=== PATIENT | female | born 1995 | race African-American/Black ===

== ENCOUNTER 2016-09-14 22:48 | Emergency (ER) | payer OTHER ==
[2016-09-15] MEDS ORDERED: metroNIDAZOLE-NS PMX 500 MG in SALINE 1 100ML.BAG IVPB STA (00:59)
--- NOTE | 2016-09-15 02:24 | ED ---
Recheck HPI - General Chief Complaint: Recheck/Abnormal Lab/Rx Stated Complaint: med reaction Time Seen by Provider: 09/15/16 00:49 Source: patient, RN notes reviewed, old records reviewed Mode of arrival: ambulatory Limitations: no limitations - History of Present Illness Initial Comments: This is a 21-year-old female presents emergency department reporting that she was negative for Trichomonas. Patient reports that she was been treated with metronidazole for the past few weeks but always vomits up her Flagyl pills. Patient ports that she is continued to have symptoms. Patient was at her primary care provider sent her in here to have IV medication. Patient denies any fever or chills. She reports that she does have dysuria and some vaginal discharge. Patient denies any fever or chills, nausea or vomiting abdominal pain. - Related Data Home Medications Medication Instructions Recorded Confirmed No Known Home Medications [No 12/14/15 09/14/16 Known Home Medications] Allergies Allergy/AdvReac Type Severity Reaction Status Date / Time amoxicillin Allergy Unknown Verified 09/14/16 23:18 metronidazole AdvReac Nausea & Verified 09/14/16 23:18 Vomiting Review of Systems ROS Statement: Those systems with pertinent positive or pertinent negative responses have been documented in the HPI. ROS Other: All systems not noted in ROS Statement are negative. Past Medical History Past Medical History: No Reported History History of Any Multi-Drug Resistant Organisms: None Reported Past Surgical History: No Surgical Hx Reported Past Psychological History: No Psychological Hx Reported Smoking Status: Never smoker Past Alcohol Use History: None Reported Past Drug Use History: None Reported General Exam - General Exam Comments Initial Comments: Is a 21-year-old female. Patient does not appear to be in any acute distress. Limitations: no limitations General appearance: alert, in no apparent distress Head exam: Present: atraumatic, normocephalic, normal inspection Eye exam: Present: normal appearance, PERRL, EOMI. Absent: scleral icterus, conjunctival injection, periorbital swelling ENT exam: Present: normal exam, mucous membranes moist Neck exam: Present: normal inspection. Absent: tenderness, meningismus, lymphadenopathy Respiratory exam: Present: normal lung sounds bilaterally. Absent: respiratory distress, wheezes, rales, rhonchi, stridor Cardiovascular Exam: Present: regular rate, normal rhythm, normal heart sounds. Absent: systolic murmur, diastolic murmur, rubs, gallop, clicks GI/Abdominal exam: Present: soft, normal bowel sounds. Absent: distended, tenderness, guarding, rebound, rigid External exam: Present: other (unable to preform vaginal exam, ER is full. Patient is in hallway during initial H and P. ) Extremities exam: Present: normal inspection, full ROM, normal capillary refill. Absent: tenderness, pedal edema, joint swelling, calf tenderness Back exam: Present: normal inspection Neurological exam: Present: alert, oriented X3, CN II-XII intact Psychiatric exam: Present: normal affect, normal mood Skin exam: Present: warm, dry, intact, normal color. Absent: rash Course Vital Signs 09/14/16 09/15/16 23:14 04:57 Temperature 98.0 F 96.9 F L Pulse Rate 115 H 88 Respiratory 18 16 Rate Blood Pressure 141/97 112/76 O2 Sat by Pulse 99 98 Oximetry Medical Decision Making - Medical Decision Making This is a 21-year-old female presents emergency department reporting that she was negative for Trichomonas. Patient reports that she was been treated with metronidazole for the past few weeks but always vomits up her Flagyl pills. Patient ports that she is continued to have symptoms. Patient was at her primary care provider sent her in here to have IV medication. Patient denies any fever or chills. Patient was unable to have pelvic exam, ER is full. No [facility] beds, and patient was in hallway and FT room with other patient. Patient given 2 g IV flagyl. Discussed with dosage with Dr. Hubbard, and pharmacist. Return paramteres discussed. Patient agrees to treatment plan and avoid intercourse. Patietn understands treatment plan, advised to follow up with PCP. Disposition Clinical Impression: Trichomoniasis Disposition: HOME SELF-CARE Condition: Good Instructions: Sexually Transmitted Diseases (ED) Additional Instructions: Avoid sexual intercourse for the next 2 weeks. Inform all sexual partners that they need to be treated. Return to emergency department if any alarming signs or symptoms occur. Referrals: Candi Andersen MD [Primary Care Provider] - 1-2 days Time of Disposition: 04:13
[2016-09-15] MEDS: metroNIDAZOLE-NS PMX 500 MG in SALINE 1 100ML.BAG IVPB SCH ×4 (02:50→04:06)
[2016-09-15 04:58] VITALS: BP 112/76; PULSE 88; RESP 16; TEMP 96.9
== END 2016-09-15 04:57 | disposition home or self-care (01) ==
LOC: EC 22:48
DX: A59.9 Trichomoniasis, unspecified (principal); Z88.0 Allergy status to penicillin; Z88.1 Allergy status to other antibiotic agents
CPT/HCPCS: 96365; 96366; 99283

== ENCOUNTER 2016-10-17 16:47 | Emergency (ER) | payer OTHER ==
[2016-10-17] MEDS ORDERED: ACETAMINOPHEN TAB 500 MG TAB PO STA (17:31)
[2016-10-17] MEDS ORDERED: ACETAMINOPHEN ORAL SUSP 160 MG/5 ML CUP PO STA (17:55)
[2016-10-17] MEDS ORDERED: IBUPROFEN IV 800 MG in SODIUM CHLORIDE 0.9% 250 ML IV STA (17:59)
--- NOTE | 2016-10-17 17:59 | ED ---
Fever HPI - General Chief Complaint: Fever Stated Complaint: Fever Time Seen by Provider: 10/17/16 17:31 Source: patient, RN notes reviewed Mode of arrival: ambulatory Limitations: no limitations - History of Present Illness Initial Comments: Patient is a 21-year-old female presents to the emergency room evaluation of fever. Patient states she's had fever since Tuesday. Patient states she went and saw her primary care provider and she was told she had a urinary tract tract infection and placed on Bactrim. Patient states she can't swallow pills and was unable to take her medications. Patient states she was told that if her temperature went above 102.0F come to the emergency room. Patient states that her temperature at home was 103.0F so she came here. Patient denies taking any Tylenol or Motrin throughout the weekend. Patient states she's had a slight dry cough. Patient states she has slight left ear pain. Patient denies throat pain. Patient denies headache or dizziness. Patient denies shortness of breath or chest pain. Patient denies abdominal pain. Patient denies nausea or vomiting. Patient denies pain or burning during urination, trouble urinating or blood in urine. Patient does states she is sexually active. Patient does states she's been 9 days late on her menstrual cycle. Patient states urine test was negative for while she was at her primary care provider on Tuesday. - Related Data Previous Rx's Medication Instructions Recorded Sulfamethox-Tmp 200-40Mg/5Ml 20 ml PO Q12HR 7 Days 10/17/16 [Bactrim Suspension] Allergies Allergy/AdvReac Type Severity Reaction Status Date / Time amoxicillin Allergy Rash/Hives Verified 10/17/16 18:02 Review of Systems ROS Statement: Those systems with pertinent positive or pertinent negative responses have been documented in the HPI. ROS Other: All systems not noted in ROS Statement are negative. Past Medical History Past Medical History: No Reported History History of Any Multi-Drug Resistant Organisms: None Reported Past Surgical History: No Surgical Hx Reported Past Psychological History: No Psychological Hx Reported Smoking Status: Never smoker Past Alcohol Use History: None Reported Past Drug Use History: None Reported General Exam - General Exam Comments Initial Comments: Sitting in exam room, no acute distress. Limitations: no limitations General appearance: alert, in no apparent distress Head exam: Present: atraumatic, normocephalic, normal inspection Eye exam: Present: normal appearance, PERRL, EOMI Pupils: Present: normal accommodation ENT exam: Present: normal exam, normal oropharynx, mucous membranes moist, TM's normal bilaterally, normal external ear exam Neck exam: Present: normal inspection, full ROM. Absent: tenderness, lymphadenopathy Respiratory exam: Present: normal lung sounds bilaterally. Absent: respiratory distress Cardiovascular Exam: Present: normal rhythm, tachycardia, normal heart sounds GI/Abdominal exam: Present: soft, normal bowel sounds. Absent: distended, tenderness, guarding, rebound, rigid Extremities exam: Present: normal inspection Back exam: Present: normal inspection Neurological exam: Present: alert, oriented X3, CN II-XII intact, normal gait Psychiatric exam: Present: normal affect, normal mood Skin exam: Present: warm, dry, intact, normal color. Absent: rash Course Vital Signs 10/17/16 10/17/16 10/17/16 17:06 18:50 19:54 Temperature 104.2 F H 101.1 F H Pulse Rate 124 H 107 H Respiratory 20 18 Rate Blood Pressure 133/95 143/86 O2 Sat by Pulse 98 96 Oximetry 10/17/16 20:26 Temperature 100.9 F H Pulse Rate 98 Respiratory 20 Rate Blood Pressure 119/77 O2 Sat by Pulse 97 Oximetry Medical Decision Making - Medical Decision Making Patient is a 21-year-old female presents to the emergency room for reevaluation of fever. Labs significant for urinary tract infection. patient will be placed on Rocephin and sent home with liquid Bactrim. Advised patient to alternate Tylenol and Motrin for fever. Patient states she understands everything that was discussed with her. Return parameters discussed. Case discussed with Dr. Soler. - Lab Data Result diagrams: 10/17/16 18:20 10/17/16 18:20 Lab Results 10/17/16 10/17/16 10/17/16 Range/Units 18:20 18:20 18:20 WBC 7.2 (4.0-11.0) k/uL RBC 4.90 (3.80-5.40) m/uL Hgb 14.4 (11.4-16.0) gm/dL Hct 41.2 (34.0-46.0) % MCV 84.1 (80.0-100.0) fL MCH 29.4 (25.0-35.0) pg MCHC 35.0 (31.0-37.0) g/dL RDW 13.9 (11.5-15.5) % Plt Count 197 (150-450) k/uL Neutrophils % 43 % Lymphocytes % 42 % Monocytes % 2 % Eosinophils % 2 % Basophils % 1 % Neutrophils # 3.1 (1.3-7.7) k/uL Lymphocytes # 3.0 (1.0-4.8) k/uL Monocytes # 0.1 (0-1.0) k/uL Eosinophils # 0.1 (0-0.7) k/uL Basophils # 0.1 (0-0.2) k/uL Manual Slide Review Performed Reactive Lymphocytes Present PT (9.0-12.0) sec INR (<1.1) APTT (22.0-30.0) sec Sodium 138 (137-145) mmol/L Potassium 4.1 (3.5-5.1) mmol/L Chloride 104 (98-107) mmol/L Carbon Dioxide 22 (22-30) mmol/L Anion Gap 12 mmol/L BUN 9 (7-17) mg/dL Creatinine 1.13 H (0.52-1.04) mg/dL Est GFR (MDRD) Af Amer >60 (>60 ml/min/1.73 sqM) Est GFR (MDRD) Non-Af >60 (>60 ml/min/1.73 sqM) Glucose 100 H (74-99) mg/dL Plasma Lactic Acid Venancio 1.4 (0.7-2.0) mmol/L Calcium 9.1 (8.4-10.2) mg/dL Total Bilirubin 1.2 (0.2-1.3) mg/dL AST 74 H (14-36) U/L ALT 105 H (9-52) U/L Alkaline Phosphatase 109 (38-126) U/L Total Protein 7.2 (6.3-8.2) g/dL Albumin 3.8 (3.5-5.0) g/dL Urine Color Urine Appearance (Clear) Urine pH (5.0-8.0) Ur Specific [place] (1.001-1.035) Urine Protein (Negative) Urine Glucose (UA) (Negative) Urine Ketones (Negative) Urine Blood (Negative) Urine Nitrite (Negative) Urine Bilirubin (Negative) Urine Urobilinogen (<2.0) mg/dL Ur Leukocyte Esterase (Negative) Urine RBC (0-5) /hpf Urine WBC (0-5) /hpf Ur Squamous Epith Cells (0-4) /hpf Amorphous Sediment (None) /hpf Urine Mucus (None) /hpf Urine HCG, Qual (Not Detectd) Heterophile Antibody (Negative) 10/17/16 10/17/16 10/17/16 Range/Units 18:20 18:20 18:20 WBC (4.0-11.0) k/uL RBC (3.80-5.40) m/uL Hgb (11.4-16.0) gm/dL Hct (34.0-46.0) % MCV (80.0-100.0) fL MCH (25.0-35.0) pg MCHC (31.0-37.0) g/dL RDW (11.5-15.5) % Plt Count (150-450) k/uL Neutrophils % % Lymphocytes % % Monocytes % % Eosinophils % % Basophils % % Neutrophils # (1.3-7.7) k/uL Lymphocytes # (1.0-4.8) k/uL Monocytes # (0-1.0) k/uL Eosinophils # (0-0.7) k/uL Basophils # (0-0.2) k/uL Manual Slide Review Reactive Lymphocytes PT 11.4 (9.0-12.0) sec INR 1.1 (<1.1) APTT 26.1 (22.0-30.0) sec Sodium (137-145) mmol/L Potassium (3.5-5.1) mmol/L Chloride (98-107) mmol/L Carbon Dioxide (22-30) mmol/L Anion Gap mmol/L BUN (7-17) mg/dL Creatinine (0.52-1.04) mg/dL Est GFR (MDRD) Af Amer (>60 ml/min/1.73 sqM) Est GFR (MDRD) Non-Af (>60 ml/min/1.73 sqM) Glucose (74-99) mg/dL Plasma Lactic Acid Venancio (0.7-2.0) mmol/L Calcium (8.4-10.2) mg/dL Total Bilirubin (0.2-1.3) mg/dL AST (14-36) U/L ALT (9-52) U/L Alkaline Phosphatase (38-126) U/L Total Protein (6.3-8.2) g/dL Albumin (3.5-5.0) g/dL Urine Color Dark Yellow Urine Appearance Turbid H (Clear) Urine pH 5.5 (5.0-8.0) Ur Specific [place] 1.022 (1.001-1.035) Urine Protein 1+ H (Negative) Urine Glucose (UA) Negative (Negative) Urine Ketones Negative (Negative) Urine Blood Large H (Negative) Urine Nitrite Negative (Negative) Urine Bilirubin 1+ H (Negative) Urine Urobilinogen 3.0 (<2.0) mg/dL Ur Leukocyte Esterase Large H (Negative) Urine RBC 7 H (0-5) /hpf Urine WBC 49 H (0-5) /hpf Ur Squamous Epith Cells 41 H (0-4) /hpf Amorphous Sediment Rare H (None) /hpf Urine Mucus Many H (None) /hpf Urine HCG, Qual Not Detected (Not Detectd) Heterophile Antibody (Negative) 10/17/16 Range/Units 18:20 WBC (4.0-11.0) k/uL RBC (3.80-5.40) m/uL Hgb (11.4-16.0) gm/dL Hct (34.0-46.0) % MCV (80.0-100.0) fL MCH (25.0-35.0) pg MCHC (31.0-37.0) g/dL RDW (11.5-15.5) % Plt Count (150-450) k/uL Neutrophils % % Lymphocytes % % Monocytes % % Eosinophils % % Basophils % % Neutrophils # (1.3-7.7) k/uL Lymphocytes # (1.0-4.8) k/uL Monocytes # (0-1.0) k/uL Eosinophils # (0-0.7) k/uL Basophils # (0-0.2) k/uL Manual Slide Review Reactive Lymphocytes PT (9.0-12.0) sec INR (<1.1) APTT (22.0-30.0) sec Sodium (137-145) mmol/L Potassium (3.5-5.1) mmol/L Chloride (98-107) mmol/L Carbon Dioxide (22-30) mmol/L Anion Gap mmol/L BUN (7-17) mg/dL Creatinine (0.52-1.04) mg/dL Est GFR (MDRD) Af Amer (>60 ml/min/1.73 sqM) Est GFR (MDRD) Non-Af (>60 ml/min/1.73 sqM) Glucose (74-99) mg/dL Plasma Lactic Acid Venancio (0.7-2.0) mmol/L Calcium (8.4-10.2) mg/dL Total Bilirubin (0.2-1.3) mg/dL AST (14-36) U/L ALT (9-52) U/L Alkaline Phosphatase (38-126) U/L Total Protein (6.3-8.2) g/dL Albumin (3.5-5.0) g/dL Urine Color Urine Appearance (Clear) Urine pH (5.0-8.0) Ur Specific [place] (1.001-1.035) Urine Protein (Negative) Urine Glucose (UA) (Negative) Urine Ketones (Negative) Urine Blood (Negative) Urine Nitrite (Negative) Urine Bilirubin (Negative) Urine Urobilinogen (<2.0) mg/dL Ur Leukocyte Esterase (Negative) Urine RBC (0-5) /hpf Urine WBC (0-5) /hpf Ur Squamous Epith Cells (0-4) /hpf Amorphous Sediment (None) /hpf Urine Mucus (None) /hpf Urine HCG, Qual (Not Detectd) Heterophile Antibody Negative (Negative) Disposition Clinical Impression: Urinary tract infection Disposition: HOME SELF-CARE Condition: Good Instructions: Urinary Tract Infection in Women (ED) Additional Instructions: Take antibiotics as directed. Alternate Tylenol and Motrin every 3 hours for fever. Please follow up with primary care provider in 1-2 days. If any new symptom arises or symptoms worsen, return to ER as soon as possible. Prescriptions: Sulfamethox-Tmp 200-40Mg/5Ml [Bactrim Suspension] 20 ml PO Q12HR 7 Days Referrals: Candi Andersen MD [Primary Care Provider] - 1-2 days Time of Disposition: 20:29
[2016-10-17 18:43] LABS: Amorphous Sediment,Urine Rare /hpf; Appearance,Urine Turbid (Clear); Bilirubin,Urine 1+ (Negative); Glucose,Urine (UA) Negative (Negative); Ketones,Urine Negative (Negative); Leukocyte Esterase,Urine Large (Negative); Mucus,Urine Many /hpf; Nitrite,Urine Negative (Negative); PH, Urine 5.5 (5.0-8.0); Particle Count 46830; Protein,Urine 1+ (Negative); RBC,Urine 7 /hpf (0-5); Specific Gravity,Urine 1.022 (1.001-1.035); Squamous Epithelial Cell,Urine 41 /hpf (0-4); UA Billing (MACRO vs. MICRO) MICRO; WBC,Urine 49 /hpf (0-5)
[2016-10-17] MEDS: SODIUM CHLORIDE 0.9% 500 ML IV SCH (18:45)
[2016-10-17 18:52] LABS: ALT 105 U/L (9-52); AST 74 U/L (14-36); Alkaline Phosphatase 109 U/L (38-126); Anion Gap 12 mmol/L; Blood Urea Nitrogen 9 mg/dL (7-17); Calcium 9.1 mg/dL (8.4-10.2); Carbon Dioxide 22 mmol/L (22-30); Chloride 104 mmol/L (98-107); Glucose 100 mg/dL (74-99); Non-African American GFR(MDRD) >60 (>60 ml/min/1.73 sqM); Potassium 4.1 mmol/L (3.5-5.1); Sodium 138 mmol/L (137-145); Total Bilirubin 1.2 mg/dL (0.2-1.3); Total Protein 7.2 g/dL (6.3-8.2)
[2016-10-17 18:53] LABS: Aty Lym Flag Marked; Basophils # (A) 0.1 k/uL (0-0.2); Basophils % (A) 1 %; CH 29.5; CHCM 35.3; Eosinophils # (A) 0.1 k/uL (0-0.7); Eosinophils % (A) 2 %; HCT 41.2 % (34.0-46.0); HDW 3.13; HGB 14.4 gm/dL (11.4-16.0); INR 1.1 (<1.1); Luc # (Auto) 0.77; Luc % (Auto) 11; Lymphocytes % (A) 42 %; MCH 29.4 pg (25.0-35.0); MCV 84.1 fL (80.0-100.0); Mean Platelet Volume 7.5; Monocytes # (A) 0.1 k/uL (0-1.0); Monocytes % (A) 2 %; Neutrophils # (A) 3.1 k/uL (1.3-7.7); Neutrophils % (A) 43 %; Partial Thromboplastin Time 26.1 sec (22.0-30.0); Prothrombin Time 11.4 sec (9.0-12.0); RDW 13.9 % (11.5-15.5); WBC 7.2 k/uL (4.0-11.0); WBC (Perox) 6.88
[2016-10-17 19:24] LABS: Manual Review Performed; Reactive Lymphocytes Present
--- NOTE | 2016-10-17 19:42 | XR ---
EXAMINATION TYPE: XR chest 2V DATE OF EXAM: 10/17/2016 COMPARISON: 08/02/2011 INDICATION: Pain right cough fever TECHNIQUE: Frontal and lateral views of the chest are obtained. FINDINGS: The heart size is normal. The pulmonary vasculature is normal. The lungs are clear. IMPRESSION: 1. No acute pulmonary process.
--- NOTE | 2016-10-17 19:54 | US ---
EXAMINATION TYPE: US abdomen complete DATE OF EXAM: 10/17/2016 COMPARISON: NONE CLINICAL HISTORY: Pain. EXAM MEASUREMENTS: Liver Length: 17.8 cm Gallbladder Wall: 0.3 cm CBD: 0.3 cm Spleen: 14.1 cm Right Kidney: 10.7 x 4.6 x 5.1 cm Left Kidney: 10.8 x 3.5 x 4.7 cm Limited exam due to pt body habitus, inability to hold breath well, and bowel gas. Pt canot remember when she ate today. Pancreas: Obscured by bowel gas Liver: Increased attenuation, measures upper limits of normal Gallbladder: Wall seems slightly thickened, may be slightly contracted. Gallbladder wall measures 0. 27 cm which is within normal limits. No pericholecystic fluid is evident. Evidence for sonographic Moses's sign: No CBD: appears wnl Spleen: splenomegaly Right Kidney: appears wnl Left Kidney: appears wnl Upper IVC: parts visualized appear wnl Abd Aorta: parts visualized appear wnl The liver is homogenous. The intrahepatic portion of the IVC and proximal abdominal aorta are within normal limits as visualized. There is no evidence of cholelithiasis. Common bile duct is unremarka ble. The pancreas is not visualized at this time due to bowel gas. The spleen is enlarged at 14.1 c m. Kidneys are symmetric and free of hydronephrosis. No renal lesions are seen. IMPRESSION: 1. Limitation due to bowel gas. 2. Visualized portions of the abdomen are unremarkable.
[2016-10-17] MEDS ORDERED: cefTRIAXone 2,000 MG in SODIUM CHLORIDE 0.9% 100 ML IVPB STA (20:29)
[2016-10-17 22:16] VITALS: BP 126/80; PULSE 85; RESP 18; TEMP 98.7
== END 2016-10-17 23:20 | disposition home or self-care (01) ==
LOC: EC 16:47
DX: N39.0 Urinary tract infection, site not specified (principal); R50.9 Fever, unspecified; R05 Cough; Z88.0 Allergy status to penicillin
CPT/HCPCS: 99284; 96365; 96366 ×2; 96367; 36415; 80053; 83605; 85025; 85610; 85730; 86308; 81001; 81025; 87040; 87086; 71020; 76700; J0696; J1741

== ENCOUNTER 2017-03-12 19:18 | Emergency (ER) | payer OTHER ==
[2017-03-12 19:23] VITALS: BP 124/103; PULSE 90; RESP 16; TEMP 98.2
[2017-03-12] MEDS ORDERED: diphenhydrAMINE 50 MG/ML 1 ML VIAL IM STA (19:51)
[2017-03-12] MEDS ORDERED: PROMETHAZINE INJ 25 MG/ML 1 ML VIAL IM STA (19:51)
[2017-03-12] MEDS ORDERED: KETOROLAC 60 MG/2 ML VIAL IM STA (19:51)
--- NOTE | 2017-03-12 19:55 | ED ---
General Adult HPI - General Chief complaint: Headache Stated complaint: Headache Time Seen by Provider: 03/12/17 19:20 Source: patient, RN notes reviewed Mode of arrival: ambulatory Limitations: no limitations - History of Present Illness Initial comments: This is a 21-year-old female who presents emergency room stating she's having a migraine headache in the frontal aspect of her head. Patient states that she has had these in the past. Patient states she's not able to take Tylenol because she has had elevated liver enzymes in the past and doesn't want to hurt her liver. Patient states she is mildly nauseated and somewhat photophobic. Patient denies any visual disturbance or speech disturbance. Patient denies any numbness or weakness. Patient denies any recent head trauma or neck trauma. Patient denies any fever chills. Patient denies any difficulty breathing or cough. Patient denies any upper respiratory like symptoms such as congestion or rhinorrhea. Patient denies any sore throat. - Related Data Home Medications Medication Instructions Recorded Confirmed Ibuprofen [Children's Motrin] 400 mg PO Q8HR PRN 03/12/17 03/12/17 Allergies Allergy/AdvReac Type Severity Reaction Status Date / Time amoxicillin Allergy Rash/Hives Verified 03/12/17 19:37 Review of Systems ROS Statement: Those systems with pertinent positive or pertinent negative responses have been documented in the HPI. ROS Other: All systems not noted in ROS Statement are negative. Past Medical History Past Medical History: No Reported History History of Any Multi-Drug Resistant Organisms: None Reported Past Surgical History: No Surgical Hx Reported Past Psychological History: No Psychological Hx Reported Smoking Status: Never smoker Past Alcohol Use History: None Reported Past Drug Use History: None Reported General Exam - General Exam Comments Initial Comments: GENERAL: Patient is well-developed and well-nourished. Patient is nontoxic and well- hydrated and is in no distress. ENT: Neck is soft and supple. No significant lymphadenopathy is noted. Oropharynx is clear. Moist mucous membranes. Neck has full range of motion without eliciting any pain. EYES: The sclera were anicteric and conjunctiva were pink and moist. Extraocular movements were intact and pupils were equal round and reactive to light. Eyelids were unremarkable. NEUROLOGIC: Patient is alert and oriented x3. Cranial nerves II through XII are grossly intact. Motor and sensory are also intact. Normal speech, volume and content. Symmetrical smile. MUSCULOSKELETAL: Normal extremities with adequate strength and full range of motion. PSYCHIATRIC: Normal psychiatric evaluation. Limitations: no limitations Course Vital Signs 03/12/17 19:21 Temperature 98.2 F Pulse Rate 90 Respiratory 16 Rate Blood Pressure 124/103 O2 Sat by Pulse 100 Oximetry Disposition Clinical Impression: Migraine Disposition: HOME SELF-CARE Condition: Good Instructions: Migraine Headache (ED) Referrals: aCndi Andersen MD [Primary Care Provider] - 1-2 days Time of Disposition: 19:55
== END 2017-03-12 20:21 | disposition home or self-care (01) ==
LOC: EC 19:18
DX: G43.909 Migraine, unspecified, not intractable, without status migrainosus (principal); Z88.0 Allergy status to penicillin
CPT/HCPCS: 99284; 96372 ×3; J1200; J2550; J1885

== ENCOUNTER → 2017-03-16 | Outpatient (CLI) | payer OTHER ==
--- NOTE | 2017-03-16 14:02 | XR ---
EXAM TYPE: LUMBAR SPINE X RAY SERIES COMPARISON: NONE HISTORY: Back pain TECHNIQUE: 4 views are submitted. FINDINGS: Alignment is anatomic. The pedicles are intact. The transverse processes are intact. There is no s pondylolysis or spondylolisthesis. IMPRESSION: 1. No acute process. Correlate with MRI if symptoms persist.
--- NOTE | 2017-03-16 14:08 | XR ---
EXAMINATION TYPE: XR thoracic spine 2V DATE OF EXAM: 03/16/2017 COMPARISON: NONE HISTORY: Back pain Alignment is anatomic. There is no compression deformities. Vertebral body height and disc interspa regis are maintained. Curvature of the spine noted. IMPRESSION: 1. No acute abnormality.
== END | disposition home or self-care (01) ==
LOC: RADXRMAIN 13:10
PROVIDERS: ATTEND Family Medicine
DX: M54.5 Low back pain (principal)
CPT/HCPCS: 72070; 72110

== ENCOUNTER 2017-03-23 17:59 | Emergency (ER) | payer OTHER ==
[2017-03-23 18:13] VITALS: BP 151/88; PULSE 79; RESP 16; TEMP 99.2
--- NOTE | 2017-03-23 18:38 | ED ---
Eye Problem HPI - General Chief complaint: Eye Problems Stated complaint: Eye Swelling Time Seen by Provider: 03/23/17 18:24 Source: patient Mode of arrival: ambulatory Limitations: no limitations - History of Present Illness Initial comments: 21-year-old female presents emergency room chief complaint bilateral eye irritation, redness and drainage. Patient states started today. Patient states she has some droopiness to her eyes. She states her son was just diagnosed with pinkeye. Patient denies any blurred vision no ocular pain denies any headache or dizziness. - Related Data Home Medications Medication Instructions Recorded Confirmed Ibuprofen [Children's Motrin] 400 mg PO Q8HR PRN 03/12/17 03/12/17 Previous Rx's Medication Instructions Recorded Tobramycin [Tobrex 0.3% Ophth Oint] 1 applic BOTH EYES QID #3.5 gm 03/23/17 Allergies Allergy/AdvReac Type Severity Reaction Status Date / Time amoxicillin Allergy Rash/Hives Verified 03/23/17 18:12 Review of Systems ROS Statement: Those systems with pertinent positive or pertinent negative responses have been documented in the HPI. ROS Other: All systems not noted in ROS Statement are negative. Past Medical History Past Medical History: No Reported History History of Any Multi-Drug Resistant Organisms: None Reported Past Surgical History: No Surgical Hx Reported Past Psychological History: No Psychological Hx Reported Smoking Status: Never smoker Past Alcohol Use History: None Reported Past Drug Use History: None Reported General Exam Limitations: no limitations General appearance: alert, in no apparent distress Head exam: Present: atraumatic, normocephalic, normal inspection Eye exam: Present: PERRL, EOMI, conjunctival injection (Bilateral, purulent drainage noted). Absent: normal appearance, scleral icterus, periorbital swelling ENT exam: Present: normal exam, normal oropharynx, mucous membranes moist, TM's normal bilaterally, normal external ear exam Neck exam: Present: normal inspection, full ROM. Absent: tenderness, meningismus, lymphadenopathy Respiratory exam: Present: normal lung sounds bilaterally. Absent: respiratory distress, wheezes, rales, rhonchi, stridor Cardiovascular Exam: Present: regular rate, normal rhythm, normal heart sounds. Absent: systolic murmur, diastolic murmur, rubs, gallop, clicks GI/Abdominal exam: Present: soft, normal bowel sounds. Absent: distended, tenderness, guarding, rebound, rigid Neurological exam: Present: alert, oriented X3, CN II-XII intact Skin exam: Present: warm, dry, intact, normal color. Absent: rash Course Vital Signs 03/23/17 18:09 Temperature 99.2 F Pulse Rate 79 Respiratory 16 Rate Blood Pressure 151/88 O2 Sat by Pulse 100 Oximetry Medical Decision Making - Medical Decision Making 21-year-old female presented for bilateral eye irritation. Patient has appears to be bacterial conjunctivitis. Patient was offered eye ointment versus drops. She requests appointment at this time. Patient was given Tobrex eye ointment with follow-up with her PCP return parameters were discussed. Disposition Clinical Impression: Bacterial conjunctivitis Disposition: HOME SELF-CARE Condition: Stable Instructions: Conjunctivitis (ED) Additional Instructions: Please return to the Emergency Department if symptoms worsen or any other concerns. Prescriptions: Tobramycin [Tobrex 0.3% Ophth Oint] 1 applic BOTH EYES QID #3.5 gm Referrals: Candi Andersen MD [Primary Care Provider] - 1-2 days Time of Disposition: 18:38
== END 2017-03-23 18:52 | disposition home or self-care (01) ==
LOC: EC 17:59
DX: H10.89 Other conjunctivitis (principal); Z88.0 Allergy status to penicillin
CPT/HCPCS: 99283

== ENCOUNTER → 2017-05-17 | Outpatient (CLI) | payer OTHER ==
--- NOTE | 2017-05-17 15:28 | XR ---
EXAMINATION TYPE: XR lumbar spine 2 or 3V DATE OF EXAM: 05/17/2017 CLINICAL HISTORY: Low back pain after strain during lifting injury. TECHNIQUE: Frontal and lateral views of the lumbar spine were obtained. COMPARISON: None FINDINGS: There are 5 lumbar type vertebral bodies identified. The lumbar spine shows satisfactory alignment without evidence of acute fracture or dislocation. Vertebral body heights and disk space he ights are within normal limits. Visualized ribs appear nondisplaced. The overlying soft tissue appea rs unremarkable. IMPRESSION: No acute fracture or dislocation is seen in the lumbar spine.
== END | disposition home or self-care (01) ==
LOC: RADXRMAIN 15:07
PROVIDERS: ATTEND Emergency Medicine
DX: S39.012A Strain of muscle, fascia and tendon of lower back, initial encounter (principal)
CPT/HCPCS: 72100

== ENCOUNTER 2017-10-23 08:09 | Emergency (ER) | payer OTHER ==
[2017-10-23 08:24] VITALS: RESP 16
--- NOTE | 2017-10-23 08:37 | ED ---
Extremity Problem HPI - General Chief complaint: Extremity Problem,Nontraumatic Stated complaint: Ankle swelling Time Seen by Provider: 10/23/17 08:27 Source: patient, RN notes reviewed, old records reviewed Mode of arrival: ambulatory Limitations: no limitations - History of Present Illness Initial comments: 22-year-old female presents emergency Department chief complaint bilateral ankle swelling for the past week. 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 Patient states that she does use compression stockings. She try to keep her feet up and elevated but she is concerned because they continued to be swollen. Denies any excessive salt intake. Patient states that she never had these symptoms before. She does not know if she could possibly be . Denies any other symptoms at this time. - Related Data Previous Rx's Medication Instructions Recorded Hydrochlorothiazide 12.5 mg PO DAILY #5 capsule 10/23/17 Allergies Allergy/AdvReac Type Severity Reaction Status Date / Time amoxicillin Allergy Rash/Hives Verified 10/23/17 08:24 Review of Systems ROS Statement: Those systems with pertinent positive or pertinent negative responses have been documented in the HPI. ROS Other: All systems not noted in ROS Statement are negative. Past Medical History Past Medical History: No Reported History History of Any Multi-Drug Resistant Organisms: None Reported Past Surgical History: No Surgical Hx Reported Past Psychological History: Anxiety Smoking Status: Never smoker Past Alcohol Use History: None Reported Past Drug Use History: None Reported General Exam - General Exam Comments Initial Comments: Patient is a 22-year-old female. Alert and oriented. No acute distress.Vital signs are temperature 98.7. Pulse 95. Respirations 16. Blood pressure 137/ 85. Pulse ox 100%. Limitations: no limitations General appearance: alert, in no apparent distress Head exam: Present: atraumatic, normocephalic, normal inspection Eye exam: Present: normal appearance, PERRL, EOMI. Absent: scleral icterus, conjunctival injection, periorbital swelling ENT exam: Present: normal exam, mucous membranes moist Neck exam: Present: normal inspection. Absent: tenderness, meningismus, lymphadenopathy Respiratory exam: Present: normal lung sounds bilaterally. Absent: respiratory distress, wheezes, rales, rhonchi, stridor Cardiovascular Exam: Present: regular rate, normal rhythm, normal heart sounds. Absent: systolic murmur, diastolic murmur, rubs, gallop, clicks GI/Abdominal exam: Present: soft, normal bowel sounds. Absent: distended, tenderness, guarding, rebound, rigid Extremities exam: Present: normal inspection, full ROM, normal capillary refill , other (Bilateral pedal edema, 2+. Patient has normal pulses. No trauma. No bruising. No calf tenderness.). Absent: tenderness, pedal edema, joint swelling, calf tenderness Back exam: Present: normal inspection Neurological exam: Present: alert, oriented X3, CN II-XII intact Psychiatric exam: Present: normal affect, normal mood Skin exam: Present: warm, dry, intact, normal color. Absent: rash Course Vital Signs 10/23/17 08:20 Temperature 98.7 F Pulse Rate 95 Respiratory 16 Rate Blood Pressure 137/85 O2 Sat by Pulse 100 Oximetry Medical Decision Making - Medical Decision Making 22-year-old feel presents with the Patient that one week of bilateral ankle swelling. Neck concern for DVT she's tenderness, is bilateral. Mainly in her ankles and feet. She does work or she standing outside. I discussed she does use compression stockings at all times keep her feet up and elevated. Patient was started on a low-dose HCTZ. Discussed radius trouble with her primary care provider. All questions answered and return parameters were discussed. - Lab Data Result diagrams: 10/23/17 08:42 10/23/17 08:42 Lab Results 10/23/17 10/23/17 10/23/17 Range/Units 08:42 08:42 08:42 WBC 9.2 (3.8-10.6) k/uL RBC 4.65 (3.80-5.40) m/uL Hgb 13.3 (11.4-16.0) gm/dL Hct 39.6 (34.0-46.0) % MCV 85.0 (80.0-100.0) fL MCH 28.5 (25.0-35.0) pg MCHC 33.5 (31.0-37.0) g/dL RDW 14.4 (11.5-15.5) % Plt Count 381 (150-450) k/uL Neutrophils % 51 % Lymphocytes % 41 % Monocytes % 4 % Eosinophils % 2 % Basophils % 0 % Neutrophils # 4.7 (1.3-7.7) k/uL Lymphocytes # 3.7 (1.0-4.8) k/uL Monocytes # 0.4 (0-1.0) k/uL Eosinophils # 0.2 (0-0.7) k/uL Basophils # 0.0 (0-0.2) k/uL Sodium 140 (137-145) mmol/L Potassium 4.3 (3.5-5.1) mmol/L Chloride 105 (98-107) mmol/L Carbon Dioxide 23 (22-30) mmol/L Anion Gap 12 mmol/L BUN 17 (7-17) mg/dL Creatinine 0.90 (0.52-1.04) mg/dL Est GFR (CKD-EPI)AfAm >90 (>60 ml/min/1.73 sqM) Est GFR (CKD-EPI)NonAf >90 (>60 ml/min/1.73 sqM) Glucose 112 H (74-99) mg/dL Calcium 9.3 (8.4-10.2) mg/dL Urine Color Urine Appearance (Clear) Urine pH (5.0-8.0) Ur Specific [place] (1.001-1.035) Urine Protein (Negative) Urine Glucose (UA) (Negative) Urine Ketones (Negative) Urine Blood (Negative) Urine Nitrite (Negative) Urine Bilirubin (Negative) Urine Urobilinogen (<2.0) mg/dL Ur Leukocyte Esterase (Negative) Urine RBC (0-5) /hpf Urine WBC (0-5) /hpf Ur Squamous Epith Cells (0-4) /hpf Urine Bacteria (None) /hpf Urine Mucus (None) /hpf Urine HCG, Qual Not Detected (Not Detectd) 10/23/17 Range/Units 08:42 WBC (3.8-10.6) k/uL RBC (3.80-5.40) m/uL Hgb (11.4-16.0) gm/dL Hct (34.0-46.0) % MCV (80.0-100.0) fL MCH (25.0-35.0) pg MCHC (31.0-37.0) g/dL RDW (11.5-15.5) % Plt Count (150-450) k/uL Neutrophils % % Lymphocytes % % Monocytes % % Eosinophils % % Basophils % % Neutrophils # (1.3-7.7) k/uL Lymphocytes # (1.0-4.8) k/uL Monocytes # (0-1.0) k/uL Eosinophils # (0-0.7) k/uL Basophils # (0-0.2) k/uL Sodium (137-145) mmol/L Potassium (3.5-5.1) mmol/L Chloride (98-107) mmol/L Carbon Dioxide (22-30) mmol/L Anion Gap mmol/L BUN (7-17) mg/dL Creatinine (0.52-1.04) mg/dL Est GFR (CKD-EPI)AfAm (>60 ml/min/1.73 sqM) Est GFR (CKD-EPI)NonAf (>60 ml/min/1.73 sqM) Glucose (74-99) mg/dL Calcium (8.4-10.2) mg/dL Urine Color Yellow Urine Appearance Cloudy H (Clear) Urine pH 5.5 (5.0-8.0) Ur Specific [place] 1.028 (1.001-1.035) Urine Protein Trace H (Negative) Urine Glucose (UA) Negative (Negative) Urine Ketones Negative (Negative) Urine Blood Negative (Negative) Urine Nitrite Negative (Negative) Urine Bilirubin Negative (Negative) Urine Urobilinogen 2.0 (<2.0) mg/dL Ur Leukocyte Esterase Large H (Negative) Urine RBC 2 (0-5) /hpf Urine WBC 9 H (0-5) /hpf Ur Squamous Epith Cells 16 H (0-4) /hpf Urine Bacteria Rare H (None) /hpf Urine Mucus Occasional H (None) /hpf Urine HCG, Qual (Not Detectd) Disposition Clinical Impression: Edema of both legs Disposition: HOME SELF-CARE Condition: Good Instructions: Leg Edema (ED) Additional Instructions: Patient advised to follow-up with primary care provider. Patient is to avoid salt intake. Return to emergency department if any alarming signs or symptoms occur. Take the medication as prescribed. Keep her feet up and elevated. Continue her compression stockings. Prescriptions: Hydrochlorothiazide 12.5 mg PO DAILY #5 capsule Is patient prescribed a controlled substance at d/c from ED?: No When asked, does pt state using other controlled substances?: No If prescribed controlled substance>3 days was MAPS reviewed?: No If opioid is for acute pain is fill amount 7 days or less?: No If Rx opioid, was Start Talking consent form obtained?: No Referrals: Cece Serra MD [Primary Care Provider] - 1-2 days Time of Disposition: 09:24
[2017-10-23 08:53] LABS: Basophils % (A) 0 %; Eosinophils # (A) 0.2 k/uL (0-0.7); Eosinophils % (A) 2 %; HCT 39.6 % (34.0-46.0); HGB 13.3 gm/dL (11.4-16.0); Lymphocytes # (A) 3.7 k/uL (1.0-4.8); Lymphocytes % (A) 41 %; MCH 28.5 pg (25.0-35.0); MCHC 33.5 g/dL (31.0-37.0); Mean Platelet Volume 6.7; Monocytes # (A) 0.4 k/uL (0-1.0); Monocytes % (A) 4 %; Neutrophils # (A) 4.7 k/uL (1.3-7.7); Neutrophils % (A) 51 %; Platelet Count 381 k/uL (150-450); RBC 4.65 m/uL (3.80-5.40); RDW 14.4 % (11.5-15.5); WBC 9.2 k/uL (3.8-10.6)
[2017-10-23 08:59] LABS: Appearance,Urine Cloudy (Clear); Bacteria,Urine Rare /hpf; Bilirubin,Urine Negative (Negative); Blood,Urine Negative (Negative); Color,Urine Yellow; Glucose,Urine (UA) Negative (Negative); Ketones,Urine Negative (Negative); Leukocyte Esterase,Urine Large (Negative); Mucus,Urine Occasional /hpf; Nitrite,Urine Negative (Negative); PH, Urine 5.5 (5.0-8.0); Protein,Urine Trace (Negative); RBC,Urine 2 /hpf (0-5); Specific Gravity,Urine 1.028 (1.001-1.035); Squamous Epithelial Cell,Urine 16 /hpf (0-4); WBC,Urine 9 /hpf (0-5)
[2017-10-23 09:03] LABS: Anion Gap 12 mmol/L; Blood Urea Nitrogen 17 mg/dL (7-17); Calcium 9.3 mg/dL (8.4-10.2); Carbon Dioxide 23 mmol/L (22-30); Chloride 105 mmol/L (98-107); Glucose 112 mg/dL (74-99); Potassium 4.3 mmol/L (3.5-5.1); Sodium 140 mmol/L (137-145)
[2017-10-23 09:37] VITALS: BP 141/80; PULSE 89; TEMP 98.2
== END 2017-10-23 09:43 | disposition home or self-care (01) ==
LOC: EC 08:09
DX: R60.0 Localized edema (principal); Z88.0 Allergy status to penicillin
CPT/HCPCS: 36415; 80048; 81001; 81025; 85025; 99284

== ENCOUNTER 2017-11-03 13:19 | Emergency (ER) | payer OTHER ==
[2017-11-03 13:33] VITALS: RESP 18
[2017-11-03] MEDS ORDERED: SODIUM CHLORIDE 0.9% 2,000 ML IV ONE (13:45)
--- NOTE | 2017-11-03 13:49 | ED ---
General Adult HPI - General Chief complaint: Syncope Stated complaint: Weakness Time Seen by Provider: 11/03/17 13:24 Source: patient, EMS, RN notes reviewed Mode of arrival: EMS Limitations: no limitations - History of Present Illness Initial comments: 22-year-old female presents emergency from via EMS with complaints of feeling lightheaded, weak. Patient states she was walking outside for 2 and half hours trying to obtain her wallet from her boyfriend. Patient states that she came to the point where she felt she has not passed out. She states she has sick on the ground. Went of a headache denies any neck pain, back pain, chest pain or shortness breath this time. Denies nausea vomiting diarrhea constipation. Patient denies any chance of - Related Data Previous Rx's Medication Instructions Recorded Ciprofloxacin HCl [Cipro] 500 mg PO Q12HR #10 tablet 11/03/17 Allergies Allergy/AdvReac Type Severity Reaction Status Date / Time amoxicillin Allergy Rash/Hives Verified 11/03/17 13:49 Review of Systems ROS Statement: Those systems with pertinent positive or pertinent negative responses have been documented in the HPI. ROS Other: All systems not noted in ROS Statement are negative. Past Medical History Past Medical History: No Reported History History of Any Multi-Drug Resistant Organisms: None Reported Past Surgical History: No Surgical Hx Reported Past Psychological History: Anxiety Smoking Status: Never smoker Past Alcohol Use History: None Reported Past Drug Use History: None Reported General Exam Limitations: no limitations General appearance: alert, in no apparent distress Head exam: Present: atraumatic, normocephalic, normal inspection Eye exam: Present: normal appearance, PERRL, EOMI. Absent: scleral icterus, conjunctival injection, periorbital swelling ENT exam: Present: normal exam, mucous membranes moist Neck exam: Present: normal inspection. Absent: tenderness, meningismus, lymphadenopathy Respiratory exam: Present: normal lung sounds bilaterally. Absent: respiratory distress, wheezes, rales, rhonchi, stridor Cardiovascular Exam: Present: normal rhythm, normal heart sounds. Absent: systolic murmur, diastolic murmur, rubs, gallop, clicks GI/Abdominal exam: Present: soft, normal bowel sounds. Absent: distended, tenderness, guarding, rebound, rigid Neurological exam: Present: alert, oriented X3, CN II-XII intact, reflexes normal. Absent: motor sensory deficit Skin exam: Present: warm, dry, intact, normal color. Absent: rash Course Vital Signs 11/03/17 13:29 Temperature 99.3 F Pulse Rate 104 H Respiratory 18 Rate Blood Pressure 114/74 O2 Sat by Pulse 97 Oximetry EKG Findings - EKG Comments: EKG Findings:: EKG performed at 13:40 normal sinus rhythm with rate of 100 [place] 150 QRS 86 QT/QTC 362/466 Medical Decision Making - Medical Decision Making 22-year-old female presented for feeling weak or syncope. Patient most likely exhibiting symptoms secondary to heat exhaustion. She was out in the heat for 2 and half hours walking. Patient was hydrated and does feel better. Patient has evidence of urinary tract infection. Patient will be given Anaprox for 5 days return parameters were discussed. - Lab Data Result diagrams: 11/03/17 13:38 11/03/17 13:38 Lab Results 11/03/17 11/03/17 11/03/17 Range/Units 13:38 13:38 15:52 WBC 7.9 (3.8-10.6) k/uL RBC 4.37 (3.80-5.40) m/uL Hgb 12.4 (11.4-16.0) gm/dL Hct 37.5 (34.0-46.0) % MCV 85.8 (80.0-100.0) fL MCH 28.4 (25.0-35.0) pg MCHC 33.1 (31.0-37.0) g/dL RDW 14.3 (11.5-15.5) % Plt Count 357 (150-450) k/uL Neutrophils % 64 % Lymphocytes % 29 % Monocytes % 5 % Eosinophils % 0 % Basophils % 0 % Neutrophils # 5.0 (1.3-7.7) k/uL Lymphocytes # 2.2 (1.0-4.8) k/uL Monocytes # 0.4 (0-1.0) k/uL Eosinophils # 0.0 (0-0.7) k/uL Basophils # 0.0 (0-0.2) k/uL Sodium 143 (137-145) mmol/L Potassium 4.2 (3.5-5.1) mmol/L Chloride 110 H (98-107) mmol/L Carbon Dioxide 24 (22-30) mmol/L Anion Gap 9 mmol/L BUN 11 (7-17) mg/dL Creatinine 0.91 (0.52-1.04) mg/dL Est GFR (CKD-EPI)AfAm >90 (>60 ml/min/1.73 sqM) Est GFR (CKD-EPI)NonAf >90 (>60 ml/min/1.73 sqM) Glucose 98 (74-99) mg/dL Calcium 8.9 (8.4-10.2) mg/dL Total Bilirubin 0.5 (0.2-1.3) mg/dL AST 28 (14-36) U/L ALT 37 (9-52) U/L Alkaline Phosphatase 59 (38-126) U/L Total Protein 6.1 L (6.3-8.2) g/dL Albumin 3.5 (3.5-5.0) g/dL Urine Color Urine Appearance (Clear) Urine pH (5.0-8.0) Ur Specific [place] (1.001-1.035) Urine Protein (Negative) Urine Glucose (UA) (Negative) Urine Ketones (Negative) Urine Blood (Negative) Urine Nitrite (Negative) Urine Bilirubin (Negative) Urine Urobilinogen (<2.0) mg/dL Ur Leukocyte Esterase (Negative) Urine RBC (0-5) /hpf Urine WBC (0-5) /hpf Ur Squamous Epith Cells (0-4) /hpf Amorphous Sediment (None) /hpf Urine Mucus (None) /hpf Urine HCG, Qual Not Detected (Not Detectd) 11/03/17 Range/Units 15:52 WBC (3.8-10.6) k/uL RBC (3.80-5.40) m/uL Hgb (11.4-16.0) gm/dL Hct (34.0-46.0) % MCV (80.0-100.0) fL MCH (25.0-35.0) pg MCHC (31.0-37.0) g/dL RDW (11.5-15.5) % Plt Count (150-450) k/uL Neutrophils % % Lymphocytes % % Monocytes % % Eosinophils % % Basophils % % Neutrophils # (1.3-7.7) k/uL Lymphocytes # (1.0-4.8) k/uL Monocytes # (0-1.0) k/uL Eosinophils # (0-0.7) k/uL Basophils # (0-0.2) k/uL Sodium (137-145) mmol/L Potassium (3.5-5.1) mmol/L Chloride (98-107) mmol/L Carbon Dioxide (22-30) mmol/L Anion Gap mmol/L BUN (7-17) mg/dL Creatinine (0.52-1.04) mg/dL Est GFR (CKD-EPI)AfAm (>60 ml/min/1.73 sqM) Est GFR (CKD-EPI)NonAf (>60 ml/min/1.73 sqM) Glucose (74-99) mg/dL Calcium (8.4-10.2) mg/dL Total Bilirubin (0.2-1.3) mg/dL AST (14-36) U/L ALT (9-52) U/L Alkaline Phosphatase (38-126) U/L Total Protein (6.3-8.2) g/dL Albumin (3.5-5.0) g/dL Urine Color Yellow Urine Appearance Cloudy H (Clear) Urine pH 6.5 (5.0-8.0) Ur Specific [place] 1.020 (1.001-1.035) Urine Protein Trace H (Negative) Urine Glucose (UA) Negative (Negative) Urine Ketones Trace H (Negative) Urine Blood Negative (Negative) Urine Nitrite Negative (Negative) Urine Bilirubin Negative (Negative) Urine Urobilinogen <2.0 (<2.0) mg/dL Ur Leukocyte Esterase Moderate H (Negative) Urine RBC <1 (0-5) /hpf Urine WBC 7 H (0-5) /hpf Ur Squamous Epith Cells 4 (0-4) /hpf Amorphous Sediment Rare H (None) /hpf Urine Mucus Rare H (None) /hpf Urine HCG, Qual (Not Detectd) Disposition Clinical Impression: Heat exhaustion, Dehydration, UTI (urinary tract infection) Disposition: HOME SELF-CARE Condition: Stable Instructions: Heat Exhaustion (ED) Additional Instructions: Please return to the Emergency Department if symptoms worsen or any other concerns. Prescriptions: Ciprofloxacin HCl [Cipro] 500 mg PO Q12HR #10 tablet Is patient prescribed a controlled substance at d/c from ED?: No Referrals: Cece Serra MD [Primary Care Provider] - 1-2 days Time of Disposition: 16:12
[2017-11-03] MEDS ORDERED: ONDANSETRON 4 MG/2 ML VIAL IVP STA (14:01)
[2017-11-03 14:08] LABS: Basophils % (A) 0 %; Eosinophils % (A) 0 %; HCT 37.5 % (34.0-46.0); HGB 12.4 gm/dL (11.4-16.0); Lymphocytes # (A) 2.2 k/uL (1.0-4.8); Lymphocytes % (A) 29 %; MCH 28.4 pg (25.0-35.0); MCHC 33.1 g/dL (31.0-37.0); MCV 85.8 fL (80.0-100.0); Mean Platelet Volume 6.6; Monocytes # (A) 0.4 k/uL (0-1.0); Monocytes % (A) 5 %; Neutrophils % (A) 64 %; Platelet Count 357 k/uL (150-450); RBC 4.37 m/uL (3.80-5.40); RDW 14.3 % (11.5-15.5); WBC 7.9 k/uL (3.8-10.6)
[2017-11-03 14:16] LABS: ALT 37 U/L (9-52); AST 28 U/L (14-36); Albumin 3.5 g/dL (3.5-5.0); Alkaline Phosphatase 59 U/L (38-126); Anion Gap 9 mmol/L; Blood Urea Nitrogen 11 mg/dL (7-17); Calcium 8.9 mg/dL (8.4-10.2); Carbon Dioxide 24 mmol/L (22-30); Chloride 110 mmol/L (98-107); Glucose 98 mg/dL (74-99); Potassium 4.2 mmol/L (3.5-5.1); Sodium 143 mmol/L (137-145); Total Bilirubin 0.5 mg/dL (0.2-1.3); Total Protein 6.1 g/dL (6.3-8.2)
[2017-11-03] MEDS ORDERED: ACETAMINOPHEN TAB 325 MG TAB PO STA (15:10)
[2017-11-03 16:03] LABS: Amorphous Sediment,Urine Rare /hpf; Appearance,Urine Cloudy (Clear); Bilirubin,Urine Negative (Negative); Blood,Urine Negative (Negative); Color,Urine Yellow; Glucose,Urine (UA) Negative (Negative); Ketones,Urine Trace (Negative); Leukocyte Esterase,Urine Moderate (Negative); Mucus,Urine Rare /hpf; Nitrite,Urine Negative (Negative); PH, Urine 6.5 (5.0-8.0); Protein,Urine Trace (Negative); RBC,Urine <1 /hpf (0-5); Squamous Epithelial Cell,Urine 4 /hpf (0-4); Urobilinogen,Urine <2.0 mg/dL (<2.0); WBC,Urine 7 /hpf (0-5)
[2017-11-03 17:27] VITALS: BP 135/61; PULSE 106; TEMP 98.6
== END 2017-11-03 17:32 | disposition home or self-care (01) ==
LOC: EC 13:19
DX: T67.5XXA Heat exhaustion, unspecified, initial encounter (principal); E86.0 Dehydration; N39.0 Urinary tract infection, site not specified; Z88.0 Allergy status to penicillin
CPT/HCPCS: 36415; 93005; 80053; 85025; 81001; 81025; 87086; 99284; 96374; 96361 ×3; J2405

== ENCOUNTER 2018-04-17 02:51 | Emergency (ER) | payer OTHER ==
[2018-04-17 02:59] VITALS: RESP 18
[2018-04-17] MEDS ORDERED: KETOROLAC 30 MG/ML 1 ML VIAL IVP STA (03:30)
[2018-04-17] MEDS ORDERED: SODIUM CHLORIDE 0.9% 1,000 ML IV ONE (03:30)
[2018-04-17] MEDS ORDERED: ACETAMINOPHEN TAB 500 MG TAB PO STA (03:30)
--- NOTE | 2018-04-17 03:34 | ED ---
Female Urogenital HPI - General Chief complaint: Vaginal Bleeding Stated complaint: pelvic pain Time Seen by Provider: 04/17/18 03:01 Source: patient Mode of arrival: ambulatory Limitations: no limitations - History of Present Illness Initial comments: 22-year-old female patient presents to the emergency department today for evaluation of pelvic pain and spotting. Patient states that her last normal period was 2 months ago. She states that whenever she has sexual intercourse she has a couple of days as spotting after. Patient denies any abnormal vaginal discharge. States that yesterday morning she developed lower pelvic pain. States that the pain is been worsening. States that the pain radiates across her entire lower abdomen. Denies any low back pain with this. Denies any fevers or chills. Denies any hematuria, dysuria, urinary frequency, urinary urgency. Patient is with a miscarriage. She denies any rash or lesions. Patient denies any recent rash, shortness breath, chest pain, nausea, vomiting, diarrhea, constipation, numbness, tingling, dizziness, weakness, headache, visual changes, or any other complaints. - Related Data Previous Rx's Medication Instructions Recorded Ciprofloxacin HCl [Cipro] 500 mg PO Q12HR #10 tablet 11/03/17 metroNIDAZOLE [Flagyl] 500 mg PO BID #14 tab 04/17/18 Allergies Allergy/AdvReac Type Severity Reaction Status Date / Time amoxicillin Allergy Rash/Hives Verified 11/03/17 13:49 Review of Systems ROS Statement: Those systems with pertinent positive or pertinent negative responses have been documented in the HPI. ROS Other: All systems not noted in ROS Statement are negative. Past Medical History Past Medical History: Hypertension History of Any Multi-Drug Resistant Organisms: None Reported Past Surgical History: No Surgical Hx Reported Past Psychological History: Anxiety Smoking Status: Never smoker Past Alcohol Use History: None Reported Past Drug Use History: None Reported General Exam Limitations: no limitations General appearance: alert, in no apparent distress, other (This is a well- developed, well-nourished adult female patient in no acute distress. Vital signs upon presentation are temperature 98.0F, pulse 78, respirations 18, blood pressure 154/101, pulse ox 99% on room air.) Eye exam: Present: normal appearance, PERRL, EOMI. Absent: scleral icterus, conjunctival injection, periorbital swelling ENT exam: Present: normal exam, normal oropharynx, mucous membranes moist Neck exam: Present: normal inspection. Absent: tenderness, meningismus, lymphadenopathy Respiratory exam: Present: normal lung sounds bilaterally. Absent: respiratory distress, wheezes, rales, rhonchi, stridor Cardiovascular Exam: Present: regular rate, normal rhythm, normal heart sounds. Absent: systolic murmur, diastolic murmur, rubs, gallop, clicks GI/Abdominal exam: Present: soft, tenderness (Right lower quadrant, left lower quadrant, and suprapubic tenderness), normal bowel sounds. Absent: distended, guarding, rebound, rigid External exam: Present: normal external exam Speculum exam: Present: vaginal discharge (Thick yellow vaginal discharge), vaginal bleeding (Small amount of pink vaginal bleeding), other (Unable to get a good visualization of the cervix due to body habitus) By manual exam: Present: normal by manual exam Extremities exam: Present: normal inspection, full ROM, normal capillary refill. Absent: tenderness, pedal edema, joint swelling, calf tenderness Back exam: Present: normal inspection. Absent: CVA tenderness (R), CVA tenderness (L) Neurological exam: Present: alert, oriented X3, CN II-XII intact Psychiatric exam: Present: normal affect, normal mood Skin exam: Present: warm, dry, intact, normal color. Absent: rash Course Vital Signs 04/17/18 04/17/18 02:54 07:17 Temperature 98.0 F 98.6 F Pulse Rate 78 89 Respiratory 18 18 Rate Blood Pressure 154/101 141/98 O2 Sat by Pulse 99 99 Oximetry Medical Decision Making - Medical Decision Making 22-year-old female patient presented to the emergency department today for evaluation of lower pelvic pain. Physical examination did reveal tenderness over the lower abdomen. Pelvic examination was performed, visualization of the cervix was difficult due to body habitus however there was presence of thick yellow vaginal discharge. Some mild bleeding. Cultures were obtained. Patient will be treated for bacterial vaginosis and giving treatment for STDs here in the department. She is instructed to complete medications and full. We did culture her urine, she'll be contacted if this is positive. She is instructed to follow up with her bed bug exterminator for further evaluation as soon as possible. Return parameters were discussed in detail. She verbalizes understanding and agrees with this plan. - Lab Data Result diagrams: 04/17/18 04:14 04/17/18 04:14 Lab Results 04/17/18 04/17/18 04/17/18 Range/Units 04:14 04:14 04:14 WBC 9.7 (3.8-10.6) k/uL RBC 4.74 (3.80-5.40) m/uL Hgb 13.1 (11.4-16.0) gm/dL Hct 40.1 (34.0-46.0) % MCV 84.5 (80.0-100.0) fL MCH 27.6 (25.0-35.0) pg MCHC 32.6 (31.0-37.0) g/dL RDW 14.1 (11.5-15.5) % Plt Count 367 (150-450) k/uL Neutrophils % 62 % Lymphocytes % 31 % Monocytes % 3 % Eosinophils % 2 % Basophils % 0 % Neutrophils # 6.1 (1.3-7.7) k/uL Lymphocytes # 3.0 (1.0-4.8) k/uL Monocytes # 0.3 (0-1.0) k/uL Eosinophils # 0.2 (0-0.7) k/uL Basophils # 0.0 (0-0.2) k/uL Sodium 140 (137-145) mmol/L Potassium 4.1 (3.5-5.1) mmol/L Chloride 106 (98-107) mmol/L Carbon Dioxide 25 (22-30) mmol/L Anion Gap 9 mmol/L BUN 13 (7-17) mg/dL Creatinine 0.84 (0.52-1.04) mg/dL Est GFR (CKD-EPI)AfAm >90 (>60 ml/min/1.73 sqM) Est GFR (CKD-EPI)NonAf >90 (>60 ml/min/1.73 sqM) Glucose 101 H (74-99) mg/dL Calcium 9.4 (8.4-10.2) mg/dL Total Bilirubin 0.3 (0.2-1.3) mg/dL AST 29 (14-36) U/L ALT 49 (9-52) U/L Alkaline Phosphatase 77 (38-126) U/L Total Protein 7.1 (6.3-8.2) g/dL Albumin 4.0 (3.5-5.0) g/dL Urine Color Urine Appearance (Clear) Urine pH (5.0-8.0) Ur Specific [place] (1.001-1.035) Urine Protein (Negative) Urine Glucose (UA) (Negative) Urine Ketones (Negative) Urine Blood (Negative) Urine Nitrite (Negative) Urine Bilirubin (Negative) Urine Urobilinogen (<2.0) mg/dL Ur Leukocyte Esterase (Negative) Urine RBC (0-5) /hpf Urine WBC (0-5) /hpf Ur Squamous Epith Cells (0-4) /hpf Urine Bacteria (None) /hpf Urine Mucus (None) /hpf Urine HCG, Qual Not Detected (Not Detectd) Trichomonas Ag (Rapid) (Negative) 04/17/18 04/17/18 Range/Units 04:14 04:14 WBC (3.8-10.6) k/uL RBC (3.80-5.40) m/uL Hgb (11.4-16.0) gm/dL Hct (34.0-46.0) % MCV (80.0-100.0) fL MCH (25.0-35.0) pg MCHC (31.0-37.0) g/dL RDW (11.5-15.5) % Plt Count (150-450) k/uL Neutrophils % % Lymphocytes % % Monocytes % % Eosinophils % % Basophils % % Neutrophils # (1.3-7.7) k/uL Lymphocytes # (1.0-4.8) k/uL Monocytes # (0-1.0) k/uL Eosinophils # (0-0.7) k/uL Basophils # (0-0.2) k/uL Sodium (137-145) mmol/L Potassium (3.5-5.1) mmol/L Chloride (98-107) mmol/L Carbon Dioxide (22-30) mmol/L Anion Gap mmol/L BUN (7-17) mg/dL Creatinine (0.52-1.04) mg/dL Est GFR (CKD-EPI)AfAm (>60 ml/min/1.73 sqM) Est GFR (CKD-EPI)NonAf (>60 ml/min/1.73 sqM) Glucose (74-99) mg/dL Calcium (8.4-10.2) mg/dL Total Bilirubin (0.2-1.3) mg/dL AST (14-36) U/L ALT (9-52) U/L Alkaline Phosphatase (38-126) U/L Total Protein (6.3-8.2) g/dL Albumin (3.5-5.0) g/dL Urine Color Yellow Urine Appearance Cloudy H (Clear) Urine pH 5.5 (5.0-8.0) Ur Specific [place] 1.022 (1.001-1.035) Urine Protein Trace H (Negative) Urine Glucose (UA) Negative (Negative) Urine Ketones Negative (Negative) Urine Blood Large H (Negative) Urine Nitrite Negative (Negative) Urine Bilirubin Negative (Negative) Urine Urobilinogen <2.0 (<2.0) mg/dL Ur Leukocyte Esterase Large H (Negative) Urine RBC 5 (0-5) /hpf Urine WBC 37 H (0-5) /hpf Ur Squamous Epith Cells 18 H (0-4) /hpf Urine Bacteria Occasional H (None) /hpf Urine Mucus Occasional H (None) /hpf Urine HCG, Qual (Not Detectd) Trichomonas Ag (Rapid) Negative (Negative) Disposition Clinical Impression: Pelvic pain, Bacterial vaginosis Disposition: HOME SELF-CARE Condition: Good Instructions: Bacterial Vaginosis (ED), Pelvic Pain in Women (ED) Additional Instructions: Complete antibiotic prescription in full. Await culture results. Follow up with OBGYN for recheck as soon as possible. Return immediately for any new, worsening , or concerning symptoms. Prescriptions: metroNIDAZOLE [Flagyl] 500 mg PO BID #14 tab Is patient prescribed a controlled substance at d/c from ED?: No Referrals: Cece Serra MD [Primary Care Provider] - 1-2 days Valentino Nelson DO [REFERRING] - 1-2 days
[2018-04-17 04:29] LABS: Basophils % (A) 0 %; Eosinophils # (A) 0.2 k/uL (0-0.7); Eosinophils % (A) 2 %; HCT 40.1 % (34.0-46.0); HGB 13.1 gm/dL (11.4-16.0); Lymphocytes % (A) 31 %; MCH 27.6 pg (25.0-35.0); MCHC 32.6 g/dL (31.0-37.0); MCV 84.5 fL (80.0-100.0); Mean Platelet Volume 6.3; Monocytes # (A) 0.3 k/uL (0-1.0); Monocytes % (A) 3 %; Neutrophils # (A) 6.1 k/uL (1.3-7.7); Neutrophils % (A) 62 %; Platelet Count 367 k/uL (150-450); RBC 4.74 m/uL (3.80-5.40); RDW 14.1 % (11.5-15.5); WBC 9.7 k/uL (3.8-10.6)
[2018-04-17 04:37] LABS: Appearance,Urine Cloudy (Clear); Bacteria,Urine Occasional /hpf; Bilirubin,Urine Negative (Negative); Blood,Urine Large (Negative); Color,Urine Yellow; Glucose,Urine (UA) Negative (Negative); Ketones,Urine Negative (Negative); Leukocyte Esterase,Urine Large (Negative); Mucus,Urine Occasional /hpf; Nitrite,Urine Negative (Negative); PH, Urine 5.5 (5.0-8.0); Protein,Urine Trace (Negative); RBC,Urine 5 /hpf (0-5); Specific Gravity,Urine 1.022 (1.001-1.035); Squamous Epithelial Cell,Urine 18 /hpf (0-4); Urobilinogen,Urine <2.0 mg/dL (<2.0); WBC,Urine 37 /hpf (0-5)
[2018-04-17] MEDS ORDERED: ONDANSETRON 4 MG/2 ML VIAL IVP STA (04:38)
[2018-04-17] MEDS ORDERED: AZITHROMYCIN 500 MG TAB PO STA (04:39)
[2018-04-17] MEDS ORDERED: cefTRIAXone 1,000 MG VIAL (IM USE) IM STA (04:39)
[2018-04-17] MEDS ORDERED: metroNIDAZOLE 500 MG TAB PO STA (04:39)
[2018-04-17 05:13] LABS: ALT 49 U/L (9-52); AST 29 U/L (14-36); Alkaline Phosphatase 77 U/L (38-126); Anion Gap 9 mmol/L; Blood Urea Nitrogen 13 mg/dL (7-17); Calcium 9.4 mg/dL (8.4-10.2); Carbon Dioxide 25 mmol/L (22-30); Chloride 106 mmol/L (98-107); Glucose 101 mg/dL (74-99); Potassium 4.1 mmol/L (3.5-5.1); Sodium 140 mmol/L (137-145); Total Bilirubin 0.3 mg/dL (0.2-1.3); Total Protein 7.1 g/dL (6.3-8.2)
[2018-04-17 07:22] VITALS: BP 141/98; PULSE 89; TEMP 98.6
[2018-04-18 13:54] LABS: C. trachomatis,PCR Negative (Neg,Equiv); Chlamydia trachomatis Source Vagina
[2018-04-18 15:50] LABS: N. gonorrhoeae,PCR Negative (Neg,Equiv); Neisseria Source Vagina
== END 2018-04-17 07:40 | disposition home or self-care (01) ==
LOC: EC 02:51
DX: N76.0 Acute vaginitis (principal); R10.2 Pelvic and perineal pain; R10.814 Left lower quadrant abdominal tenderness; R10.813 Right lower quadrant abdominal tenderness; Z88.0 Allergy status to penicillin; Z53.8 Procedure and treatment not carried out for other reasons
CPT/HCPCS: 36415; 80053; 85025; 81001; 81025; 87808; 87491; 87591; 87070; 87086; 87205; 99284; 96374; 96375; 96361 ×3; 96372; J2405; J0696; J1885

== ENCOUNTER → 2018-12-18 | Outpatient (CLI) | payer OTHER ==
--- NOTE | 2018-12-18 17:18 | FL ---
EXAMINATION TYPE: [place] hysterosalpingography DATE OF EXAM: 12/18/2018 COMPARISON: None HISTORY: Ovarian dysfunction TECHNIQUE: The procedure was explained to the patient, the risks complications and benefits. All ques tions were answered. Written and verbal informed consent was obtained. A timeout was performed. The patient was placed on the fluoroscopy table in the supine view. Speculum was placed. There was di fficulty given the patient's body habitus and comfort level with the pelvic speculum placement. Howev er, the patient was extremely cooperative which allowed for [address] a speculum and c atheter. This was unsuccessful given the nonvisualization of the cervical os with redundant tissue in the vaginal canal. The unsuccessful attempts were relayed to the patient. The patient's in-state member certification manager white spooler office was notified. Coordination between gynecology and the physician performing the hyste rosalpingogram may be required for successful evaluation. Fluoroscopy time: 19 seconds Images: 3 IMPRESSION: 1. Hysterosalpingogram was unsuccessful due nonvisualization of the cervix.
== END | disposition home or self-care (01) ==
LOC: RADUSWWP 13:16
PROVIDERS: ATTEND Obstetrics & Gynecology Reproductive Endocrinology
DX: E28.9 Ovarian dysfunction, unspecified (principal)
CPT/HCPCS: 58340; 74740; Q9966

== ENCOUNTER → 2019-03-17 | Outpatient (CLI) | payer OTHER ==
[2019-03-17 11:37] LABS: Basophils # (A) 0.1 k/uL (0-0.2); Basophils % (A) 1 %; Eosinophils # (A) 0.2 k/uL (0-0.7); Eosinophils % (A) 2 %; HCT 44.3 % (34.0-46.0); HGB 14.6 gm/dL (11.4-16.0); Lymphocytes # (A) 2.9 k/uL (1.0-4.8); Lymphocytes % (A) 34 %; MCH 28.6 pg (25.0-35.0); MCHC 32.8 g/dL (31.0-37.0); Mean Platelet Volume 6.2; Monocytes # (A) 0.3 k/uL (0-1.0); Monocytes % (A) 3 %; Neutrophils % (A) 59 %; Platelet Count 378 k/uL (150-450); RBC 5.09 m/uL (3.80-5.40); RDW 14.5 % (11.5-15.5); WBC 8.6 k/uL (3.8-10.6)
[2019-03-17 17:27] LABS: African American GFR (CKD) 105.2 (60.0-200.0); Albumin 4.3 g/dL (3.80-4.90); Albumin/Globulin Ratio 1.87 (1.60-3.17); Anion Gap 7.5 mmol/L (4.00-12.00); BUN/Creat Ratio 14.44 Ratio (12.00-20.00); Calcium 9.5 mg/dL (8.7-10.3); Carbon Dioxide 26.5 mmol/L (21.6-31.8); Chol/HDL Ratio 2.7; Globulin 2.3 g/dL (1.6-3.3); Potassium 4.5 mmol/L (3.5-5.5); Total Bilirubin 0.4 mg/dL (0.2-1.2); Total Protein 6.6 g/dL (6.2-8.2); Uric Acid 6.8 mg/dL (2.9-7.7)
[2019-03-17 17:34] LABS: Prolactin 8.2 ng/mL (2.8-29.2)
[2019-03-17 17:37] LABS: DHEA Sulfate 169.9 ug/dL (26.0-430.0)
[2019-03-17 17:54] LABS: ACTH 12.5 pg/mL (0.00-45.99)
[2019-03-17 18:14] LABS: Hemoglobin A1C 5.4 % (4.0-6.0)
== END ==
LOC: LABWHC1 11:02
PROVIDERS: ATTEND Family Medicine
DX: I10 Essential (primary) hypertension (principal); E66.01 Morbid (severe) obesity due to excess calories; R30.0 Dysuria; Z87.42 Personal history of other diseases of the female genital tract; Z68.44 Body mass index [BMI] 60.0-69.9, adult; Z71.3 Dietary counseling and surveillance; Z71.82 Exercise counseling
CPT/HCPCS: 36415; 80053; 80061; 82024; 82088; 82306; 82533; 82627; 83036; 83835; 84146; 84244; 84443; 84550; 84681; 85025

== ENCOUNTER 2019-09-21 22:15 | Emergency (ER) | payer OTHER ==
[2019-09-21] MEDS ORDERED: SODIUM CHLORIDE 0.9% 1,000 ML IV ONE (22:40)
[2019-09-21 23:01] LABS: Appearance,Urine Cloudy (Clear); Bacteria,Urine Rare /hpf; Bilirubin,Urine Negative (Negative); Blood,Urine Moderate (Negative); Color,Urine Yellow; Glucose,Urine (UA) Negative (Negative); Hyaline Casts,Urine 1 /lpf (0-2); Ketones,Urine Negative (Negative); Leukocyte Esterase,Urine Moderate (Negative); Mucus,Urine Rare /hpf; Nitrite,Urine Negative (Negative); PH, Urine 6.5 (5.0-8.0); Protein,Urine Negative (Negative); RBC,Urine 1 /hpf (0-5); Specific Gravity,Urine 1.025 (1.001-1.035); Squamous Epithelial Cell,Urine 15 /hpf (0-4); WBC,Urine 14 /hpf (0-5)
[2019-09-21 23:20] LABS: Basophils % (A) 0 %; Eosinophils # (A) 0.2 k/uL (0-0.7); Eosinophils % (A) 2 %; HGB 13.9 gm/dL (11.4-16.0); Lymphocytes # (A) 3.3 k/uL (1.0-4.8); Lymphocytes % (A) 33 %; MCHC 33.1 g/dL (31.0-37.0); MCV 87.4 fL (80.0-100.0); Mean Platelet Volume 6.9; Monocytes # (A) 0.4 k/uL (0-1.0); Monocytes % (A) 4 %; Neutrophils # (A) 5.9 k/uL (1.3-7.7); Neutrophils % (A) 59 %; Platelet Count 363 k/uL (150-450); RBC 4.81 m/uL (3.80-5.40); RDW 14.4 % (11.5-15.5); WBC 9.9 k/uL (3.8-10.6)
--- NOTE | 2019-09-21 23:27 | ED ---
General Adult HPI - General Chief complaint: Abdominal Pain Stated complaint: Abdominal Pain, pgt Time Seen by Provider: 09/21/19 22:23 Source: patient, RN notes reviewed Mode of arrival: ambulatory Limitations: no limitations - History of Present Illness Initial comments: 24-year-old female with a past medical history of hypertension presents to the emergency department for a chief complaint of pelvic cramping and vaginal discharge. Patient states this started in the past 2-3 days. Patient states discharge is a brown color in nature. Patient states she had multiple positive tests and was scheduled to have a beta hCG drawn next week. LMP 08/20/2019. Patient denies any significant pain but does admit to some mild cramping. Patient has no other complaints at this time including shortness of breath, chest pain, nausea or vomiting, headache, or visual changes. - Related Data Home Medications Medication Instructions Recorded Confirmed Pnv No.95/Ferrous Fum/Folic AC 1 each PO DAILY 09/21/19 09/21/19 [ Multivitamin Tablet] Previous Rx's Medication Instructions Recorded Cephalexin [Keflex] 500 mg PO Q8HR 7 Days #21 cap 09/22/19 Allergies Allergy/AdvReac Type Severity Reaction Status Date / Time amoxicillin Allergy Rash/Hives Verified 09/21/19 22:22 Review of Systems ROS Statement: Those systems with pertinent positive or pertinent negative responses have been documented in the HPI. ROS Other: All systems not noted in ROS Statement are negative. Past Medical History Past Medical History: Hypertension History of Any Multi-Drug Resistant Organisms: None Reported Past Surgical History: No Surgical Hx Reported Past Psychological History: Anxiety Smoking Status: Never smoker Past Alcohol Use History: None Reported Past Drug Use History: None Reported General Exam Limitations: no limitations General appearance: alert, in no apparent distress Head exam: Present: atraumatic, normocephalic, normal inspection Eye exam: Present: normal appearance, PERRL, EOMI. Absent: scleral icterus, conjunctival injection, periorbital swelling ENT exam: Present: normal exam, mucous membranes moist Neck exam: Present: normal inspection, full ROM. Absent: tenderness, meningismus, lymphadenopathy Respiratory exam: Present: normal lung sounds bilaterally. Absent: respiratory distress, wheezes, rales, rhonchi, stridor Cardiovascular Exam: Present: regular rate, normal rhythm, normal heart sounds. Absent: systolic murmur, diastolic murmur, rubs, gallop, clicks GI/Abdominal exam: Present: soft, normal bowel sounds. Absent: distended, tenderness (nontender abdomen), guarding, rebound, rigid External exam: Present: normal external exam. Absent: erythema, swelling, lesions, lacerations, ecchymosis Speculum exam: Present: normal speculum exam. Absent: erythema, vaginal discharge, cervical discharge, vaginal bleeding, foreign body, tissue, laceration By manual exam: Present: normal by manual exam. Absent: cervical motion tend erness, adnexal tenderness, adnexal mass, uterine enlargement, uterine tenderness Neurological exam: Present: alert Psychiatric exam: Present: normal affect, normal mood Course Vital Signs 09/21/19 22:20 Temperature 99.3 F Pulse Rate 86 Respiratory 18 Rate Blood Pressure 157/100 O2 Sat by Pulse 100 Oximetry Medical Decision Making - Medical Decision Making Vitals are stable. Physical exam is unremarkable. There is no abdominal tenderness whatsoever. I do not see any obvious discharge. CBC CMP unremarkable. Ultrasound shows moderate free fluid in the cul-de-sac. No evidence of intrauterine gestational sac. Enlarged right ovary with multiple cysts. Rad did not see ectopic gestational sac. HCG is 43.6. Trichomonas is negative. Patient has CLAIM TAKER in [place] who is aware of these symptoms. I will write for beta-hCG to be repeated in 48-72 hours. Patient is aware that it is imperative she follows with her CLAIM TAKER for this. She is also agreeable to returning if she has any significant worsening abdominal pain.I discussed this case with attending Dr. Woodruff who also evaluated patient and agrees with th is assessment and treatment plan. - Lab Data Result diagrams: 09/21/19 23:11 09/21/19 23:11 Lab Results 09/21/19 09/21/19 09/21/19 Range/Units 22:42 22:42 22:42 WBC (3.8-10.6) k/uL RBC (3.80-5.40) m/uL Hgb (11.4-16.0) gm/dL Hct (34.0-46.0) % MCV (80.0-100.0) fL MCH (25.0-35.0) pg MCHC (31.0-37.0) g/dL RDW (11.5-15.5) % Plt Count (150-450) k/uL Neutrophils % % Lymphocytes % % Monocytes % % Eosinophils % % Basophils % % Neutrophils # (1.3-7.7) k/uL Lymphocytes # (1.0-4.8) k/uL Monocytes # (0-1.0) k/uL Eosinophils # (0-0.7) k/uL Basophils # (0-0.2) k/uL Sodium (137-145) mmol/L Potassium (3.5-5.1) mmol/L Chloride (98-107) mmol/L Carbon Dioxide (22-30) mmol/L Anion Gap mmol/L BUN (7-17) mg/dL Creatinine (0.52-1.04) mg/dL Est GFR (CKD-EPI)AfAm (>60 ml/min/1.73 sqM) Est GFR (CKD-EPI)NonAf (>60 ml/min/1.73 sqM) Glucose (74-99) mg/dL Calcium (8.4-10.2) mg/dL Total Bilirubin (0.2-1.3) mg/dL AST (14-36) U/L ALT (4-34) U/L Alkaline Phosphatase (38-126) U/L Total Protein (6.3-8.2) g/dL Albumin (3.5-5.0) g/dL HCG, Quant mIU/mL Urine Color Yellow Urine Appearance Cloudy H (Clear) Urine pH 6.5 (5.0-8.0) Ur Specific [place] 1.025 (1.001-1.035) Urine Protein Negative (Negative) Urine Glucose (UA) Negative (Negative) Urine Ketones Negative (Negative) Urine Blood Moderate H (Negative) Urine Nitrite Negative (Negative) Urine Bilirubin Negative (Negative) Urine Urobilinogen 2.0 (<2.0) mg/dL Ur Leukocyte Esterase Moderate H (Negative) Urine RBC 1 (0-5) /hpf Urine WBC 14 H (0-5) /hpf Ur Squamous Epith Cells 15 H (0-4) /hpf Urine Bacteria Rare H (None) /hpf Hyaline Casts 1 (0-2) /lpf Urine Mucus Rare H (None) /hpf Urine HCG, Qual Not Detected (Not Detectd) Trichomonas Ag (Rapid) Negative (Negative) Blood Type Blood Type Recheck Bld Type Recheck Status 09/21/19 09/21/19 09/21/19 Range/Units 23:11 23:11 23:11 WBC 9.9 (3.8-10.6) k/uL RBC 4.81 (3.80-5.40) m/uL Hgb 13.9 (11.4-16.0) gm/dL Hct 42.0 (34.0-46.0) % MCV 87.4 (80.0-100.0) fL MCH 29.0 (25.0-35.0) pg MCHC 33.1 (31.0-37.0) g/dL RDW 14.4 (11.5-15.5) % Plt Count 363 (150-450) k/uL Neutrophils % 59 % Lymphocytes % 33 % Monocytes % 4 % Eosinophils % 2 % Basophils % 0 % Neutrophils # 5.9 (1.3-7.7) k/uL Lymphocytes # 3.3 (1.0-4.8) k/uL Monocytes # 0.4 (0-1.0) k/uL Eosinophils # 0.2 (0-0.7) k/uL Basophils # 0.0 (0-0.2) k/uL Sodium 137 (137-145) mmol/L Potassium 4.3 (3.5-5.1) mmol/L Chloride 103 (98-107) mmol/L Carbon Dioxide 25 (22-30) mmol/L Anion Gap 9 mmol/L BUN 21 H (7-17) mg/dL Creatinine 0.97 (0.52-1.04) mg/dL Est GFR (CKD-EPI)AfAm >90 (>60 ml/min/1.73 sqM) Est GFR (CKD-EPI)NonAf 83 (>60 ml/min/1.73 sqM) Glucose 103 H (74-99) mg/dL Calcium 9.4 (8.4-10.2) mg/dL Total Bilirubin 0.4 (0.2-1.3) mg/dL AST 26 (14-36) U/L ALT 25 (4-34) U/L Alkaline Phosphatase 68 (38-126) U/L Total Protein 7.1 (6.3-8.2) g/dL Albumin 4.1 (3.5-5.0) g/dL HCG, Quant 43.6 mIU/mL Urine Color Urine Appearance (Clear) Urine pH (5.0-8.0) Ur Specific [place] (1.001-1.035) Urine Protein (Negative) Urine Glucose (UA) (Negative) Urine Ketones (Negative) Urine Blood (Negative) Urine Nitrite (Negative) Urine Bilirubin (Negative) Urine Urobilinogen (<2.0) mg/dL Ur Leukocyte Esterase (Negative) Urine RBC (0-5) /hpf Urine WBC (0-5) /hpf Ur Squamous Epith Cells (0-4) /hpf Urine Bacteria (None) /hpf Hyaline Casts (0-2) /lpf Urine Mucus (None) /hpf Urine HCG, Qual (Not Detectd) Trichomonas Ag (Rapid) (Negative) Blood Type O Positive Blood Type Recheck O Pos Bld Type Recheck Status No Disposition Clinical Impression: Vaginal discharge, Elevated serum hCG Disposition: HOME SELF-CARE Condition: Good Instructions (If sedation given, give patient instructions): Threatened Miscarriage (ED) Additional Instructions: Please repeat hCG in 48-72 hours. It is very important that you follow with your CLAIM TAKER for these results. If you have any worsening abdominal pain you must return to the emergency department. Otherwise make sure to follow up with CLAIM TAKER as soon as possible preferably in the next 2 days. Prescriptions: Cephalexin [Keflex] 500 mg PO Q8HR 7 Days #21 cap Is patient prescribed a controlled substance at d/c from ED?: No Referrals: Candi Andersen MD [Primary Care Provider] - 1-2 days Time of Disposition: 00:17
[2019-09-21 23:28] LABS: ALT 25 U/L (4-34); AST 26 U/L (14-36); African American GFR (CKD) >90 (>60 ml/min/1.73 sqM); Albumin 4.1 g/dL (3.5-5.0); Alkaline Phosphatase 68 U/L (38-126); Anion Gap 9 mmol/L; Blood Urea Nitrogen 21 mg/dL (7-17); Calcium 9.4 mg/dL (8.4-10.2); Carbon Dioxide 25 mmol/L (22-30); Chloride 103 mmol/L (98-107); Glucose 103 mg/dL (74-99); Non-African American GFR(CKD) 83 (>60 ml/min/1.73 sqM); Potassium 4.3 mmol/L (3.5-5.1); Sodium 137 mmol/L (137-145); Total Bilirubin 0.4 mg/dL (0.2-1.3); Total Protein 7.1 g/dL (6.3-8.2)
[2019-09-21 23:44] LABS: HCG,Quantitative Serum 43.6 mIU/mL
--- NOTE | 2019-09-22 | US ---
EXAMINATION TYPE: Transabdominal DATE OF EXAM: 09/21/2019 11:41 PM COMPARISON: NONE CLINICAL HISTORY: pain. Discharge cramping. EXAM PERFORMED: Transvaginal (TV) and Transabdominal (TA) EXAM MEASUREMENTS: GESTATIONAL AGE / DATING Physician Established: Not yet established Dates by LMP: (4 weeks/4 days) EDC: 05/26/2020 Dates by First Scan: No previous this is first scan Dates by Current Scan for: No IUP seen at this time. MATERNAL ANATOMY Uterus: 8.0 x 3.7 x 3.9 cm Right Ovary: 5.4 x 4.1 x 4.8 cm Left Ovary: 3.4 x 1.7 x 1.3 cm Post CDS / Adnexa: wnl Presence of free fluid: Yes Presence of corpus luteal cyst: No Presence of subchorionic bleed: No GESTATION / SURVEY IUP: No IUP seen at this time Beta HcG (if available): Not detected. IMPRESSION: There is moderate free fluid in the cul-de-sac. No evidence of intrauterine gestational sac. Enlarged right ovary with multiple cysts. I do not see ectopic gestational sac.
[2019-09-22 00:37] VITALS: BP 148/95; PULSE 83; RESP 17; TEMP 99
[2019-09-25 13:23] LABS: C. trachomatis,PCR Negative (Neg,Equiv); Chlamydia trachomatis Source Vagina; N. gonorrhoeae,PCR Negative (Neg,Equiv); Neisseria Source Vagina
== END 2019-09-22 00:37 | disposition home or self-care (01) ==
LOC: EC 22:15
DX: N89.8 Other specified noninflammatory disorders of vagina (principal); E34.9 Endocrine disorder, unspecified; N83.201 Unspecified ovarian cyst, right side; Z88.0 Allergy status to penicillin
CPT/HCPCS: 36415; 76801; 76817; 80053; 81001; 81025; 84702; 85025; 86900; 86901; 87070; 87086; 87491; 87591; 87808; 96360; 99284

== ENCOUNTER 2019-09-23 19:56 | Emergency (ER) | payer OTHER ==
[2019-09-23 20:00] VITALS: TEMP 98
--- NOTE | 2019-09-23 20:37 | ED ---
General Adult HPI - General Chief complaint: Recheck/Abnormal Lab/Rx Stated complaint: recheck, abn labs Time Seen by Provider: 09/23/19 20:25 Source: patient, RN notes reviewed Mode of arrival: wheelchair Limitations: no limitations - History of Present Illness Initial comments: 24-year-old female presents to the emergency department for a chief c omplaint of recheck. Patient states that she had positive tests earlier this week by urine. Last menstrual period was about 4 weeks ago. She is having left-sided cramping. She was having some brown vaginal discharge however that has resolved. When patient was in the emergency room she had a serum Quant of 43. She was directed to repeat this in 2 days however labs were closed because of the holiday so she came back to the emergency room for this patient. States cramping has continued but has not worsened.Patient has no other complaints at this time including shortness of breath, chest pain, nausea or vomiting, headache, or visual changes. - Related Data Home Medications Medication Instructions Recorded Confirmed Pnv No.95/Ferrous Fum/Folic AC 1 each PO DAILY 09/21/19 09/21/19 [ Multivitamin Tablet] Previous Rx's Medication Instructions Recorded Cephalexin [Keflex] 500 mg PO Q8HR 7 Days #21 cap 09/22/19 Allergies Allergy/AdvReac Type Severity Reaction Status Date / Time amoxicillin Allergy Rash/Hives Verified 09/23/19 20:00 Review of Systems ROS Statement: Those systems with pertinent positive or pertinent negative responses have been documented in the HPI. ROS Other: All systems not noted in ROS Statement are negative. Past Medical History Past Medical History: No Reported History, Hypertension History of Any Multi-Drug Resistant Organisms: None Reported Past Surgical History: No Surgical Hx Reported Past Psychological History: Anxiety Smoking Status: Never smoker Past Alcohol Use History: None Reported Past Drug Use History: None Reported General Exam Limitations: no limitations General appearance: alert, in no apparent distress Head exam: Present: atraumatic, normocephalic, normal inspection Eye exam: Present: normal appearance, PERRL, EOMI. Absent: scleral icterus, conjunctival injection, periorbital swelling ENT exam: Present: normal exam, mucous membranes moist Neck exam: Present: normal inspection, full ROM. Absent: tenderness, meningismus, lymphadenopathy Respiratory exam: Present: normal lung sounds bilaterally. Absent: respiratory distress, wheezes, rales, rhonchi, stridor Cardiovascular Exam: Present: regular rate, normal rhythm, normal heart sounds. Absent: systolic murmur, diastolic murmur, rubs, gallop, clicks GI/Abdominal exam: Present: soft, normal bowel sounds. Absent: distended, tenderness, guarding, rebound, rigid External exam: Present: other (Patient refused) Course Vital Signs 09/23/19 19:57 Temperature 98.0 F Pulse Rate 95 Respiratory 20 Rate Blood Pressure 165/101 O2 Sat by Pulse 99 Oximetry Medical Decision Making - Medical Decision Making HCG has actually doubled in the past 2 days from 43-97. Ultrasound shows free fluid in the pelvis as on prior exam without significant interval change. She has no tenderness whatsoever of the abdomen. At this point it is reasonable to think that patient has an early however again will be given a prescription for repeat hCG. She should be able to contact her [facility] on Tuesday about this. She is still aware that this is important to rule out ectopic or miscarriage although upward hCG trend is reassuring. If she has any worsening symptoms or worsening pain she will return here to the emergency department. - Lab Data Lab Results 09/23/19 09/23/19 Range/Units 20:50 20:55 HCG, Quant 97.5 mIU/mL Urine Color Yellow Urine Appearance Cloudy H (Clear) Urine pH 6.0 (5.0-8.0) Ur Specific [place] 1.026 (1.001-1.035) Urine Protein Negative (Negative) Urine Glucose (UA) Negative (Negative) Urine Ketones Negative (Negative) Urine Blood Negative (Negative) Urine Nitrite Negative (Negative) Urine Bilirubin Negative (Negative) Urine Urobilinogen <2.0 (<2.0) mg/dL Ur Leukocyte Esterase Moderate H (Negative) Urine RBC 1 (0-5) /hpf Urine WBC 10 H (0-5) /hpf Ur Squamous Epith Cells 8 H (0-4) /hpf Urine Bacteria Rare H (None) /hpf Urine Mucus Rare H (None) /hpf Disposition Clinical Impression: Elevated serum hCG Disposition: HOME SELF-CARE Condition: Good Instructions (If sedation given, give patient instructions): Threatened Miscarriage (ED) Additional Instructions: Please repeat lab value on Tuesday and contact your [facility]. If you have worsening pain return to the emergency room. Is patient prescribed a controlled substance at d/c from ED?: No Referrals: Candi Andersen MD [Primary Care Provider] - 1-2 days Time of Disposition: 22:31
[2019-09-23 21:13] LABS: Appearance,Urine Cloudy (Clear); Bacteria,Urine Rare /hpf; Bilirubin,Urine Negative (Negative); Blood,Urine Negative (Negative); Color,Urine Yellow; Glucose,Urine (UA) Negative (Negative); Ketones,Urine Negative (Negative); Leukocyte Esterase,Urine Moderate (Negative); Mucus,Urine Rare /hpf; Nitrite,Urine Negative (Negative); Protein,Urine Negative (Negative); RBC,Urine 1 /hpf (0-5); Specific Gravity,Urine 1.026 (1.001-1.035); Squamous Epithelial Cell,Urine 8 /hpf (0-4); Urobilinogen,Urine <2.0 mg/dL (<2.0); WBC,Urine 10 /hpf (0-5)
--- NOTE | 2019-09-23 21:50 | US ---
EXAMINATION TYPE: Transabdominal DATE OF EXAM: 09/23/2019 9:36 PM COMPARISON: Previous pelvic ultrasound 09/21/2019 CLINICAL HISTORY: LLQ apin. LLQ pain EXAM PERFORMED: Transvaginal (TV) and Transabdominal (TA), endovaginal scanning performed for better evaluation of the ovaries and uterus EXAM MEASUREMENTS: GESTATIONAL AGE / DATING Physician Established: Not yet established Dates by LMP: (4 weeks/3 days) EDC: 05/29/20 Dates by First Scan: no IUP visualized Dates by Current Scan for: No IUP seen at this time MATERNAL ANATOMY Uterus: 7.8 x 4.3 x 4.6cm Right Ovary: 5.6 x 3.9 x 5.2cm, similar cystic areas with septations are noted as on prior, grayscale and color Doppler imaging performed, color flow is present to the right ovary Left Ovary: 3.1 x 1.8 x 2.1cm Post CDS / Adnexa: free fluid noted posterior cul-de-sac and bilateral adnexa Presence of free fluid: yes Presence of corpus luteal cyst: mixed area right ovary = 4.4 x 3.0 x 4.0cm GESTATION / SURVEY IUP: No IUP seen at this time Date of LMP: 08/23/19 Beta HcG (if available): 97.5 No evidence of IUP at this time. Cystic areas are associated with the right ovary. Free fluid posteri or cul-de-sac and bilateral adnexa IMPRESSION: There is free fluid in the pelvis as on prior exam. There is no significant interval change compared to prior exam.
[2019-09-23 22:51] VITALS: BP 141/99; PULSE 84; RESP 18
== END 2019-09-23 22:50 | disposition home or self-care (01) ==
LOC: EC 19:56
DX: R89.1 Abnormal level of hormones in specimens from other organs, systems and tissues (principal); N89.8 Other specified noninflammatory disorders of vagina; Z79.899 Other long term (current) drug therapy; Z88.0 Allergy status to penicillin
CPT/HCPCS: 36415; 76801; 76817; 81001; 84702; 99284

== ENCOUNTER → 2019-09-25 | Outpatient (CLI) | payer OTHER | END | disposition home or self-care (01) | LOC: LABWHC1 10:23 | PROVIDERS: ATTEND Obstetrics & Gynecology | DX: R25.2 Cramp and spasm (principal); N89.8 Other specified noninflammatory disorders of vagina | CPT/HCPCS: 36415; 84702 ==

== ENCOUNTER → 2019-09-27 | Outpatient (CLI) | payer OTHER | END | disposition home or self-care (01) | LOC: LABWHC1 13:48 | PROVIDERS: ATTEND Obstetrics & Gynecology | DX: N92.6 Irregular menstruation, unspecified (principal) | CPT/HCPCS: 36415; 84144; 84702; 86850; 86900; 86901 ==

== ENCOUNTER → 2019-10-01 | Outpatient (CLI) | payer OTHER | END | disposition home or self-care (01) | LOC: LABWHC1 14:04 | PROVIDERS: ATTEND Obstetrics & Gynecology | DX: Z32.01 Encounter for pregnancy test, result positive (principal) | CPT/HCPCS: 36415; 84702 ==

== ENCOUNTER → 2020-05-19 | Outpatient (CLI) | payer OTHER ==
[2020-05-19 09:01] LABS: HCG,Quantitative Serum <2.4 mIU/mL
--- NOTE | 2020-05-19 09:34 | US ---
EXAMINATION TYPE: US transvaginal DATE OF EXAM: 05/19/2020 COMPARISON: 09/23/2019 CLINICAL HISTORY: 25-year-old female E28.9 Ovarian dysfunction, unspecified. TECHNIQUE: Transvaginal (TV). FINDINGS: Emergency Spill Response Technician notes: obese patient. Technically difficult study. Date of LMP: 05/17/20 EXAM MEASUREMENTS: Uterus: 7.6 x 3.8 x 3.5 cm Endometrial Stripe: 0.2 cm Right Ovary: 2.7 x 1.8 x 1.6 cm for an estimated volume of 4.1 Left Ovary: 3.5 x 1.9 x 1.7 cm for a volume of 5.9 mL 1. Uterus: Anteverted 2. Endometrium: wnl 3. Right Ovary Largest 2 follicles measured: (Right ovary partially obscured by overlying bowel gas, only able to ad equately visualize 2 follicles) 1.) 0.8 x 0.6 x 0.6cm 2.) 0.6 x 0.4 x 0.5cm 4. Left Ovary: A few (approximately 8) small peripheral follicles are present. Largest 3 follicles measured: 1.) 0.7 x 0.5 x 0.7cm, lateral 2.) 0.5 x 0.4 x 0.5cm, medial 3.)0.5 x 0.5 x 0.6cm, mid 5. Bilateral Adnexa: wnl 6. Posterior cul-de-sac: wnl Emergency Spill Response Technician notes: Ovaries are located more in the cul de sac. IMPRESSION: 1. Small to normal-sized ovaries with volumes as above. Small peripheral follicles are present on bot h sides. The septated cystic lesion seen on 09/23/2019 in the right ovary has resolved. 2. Thin endometrial stripe at 2 mm.
[2020-05-19 15:53] LABS: Estradiol 35.1 pg/mL; Follicle Stimulating Hormone 6.1 mIU/mL; Luteinizing Hormone 5.1 mIU/mL
== END | disposition home or self-care (01) ==
LOC: RADUSWWP 07:28
PROVIDERS: ATTEND Obstetrics & Gynecology Reproductive Endocrinology
DX: E28.9 Ovarian dysfunction, unspecified (principal)
CPT/HCPCS: 36415; 76830; 82670; 83001; 83002; 84144; 84443; 84702

== ENCOUNTER → 2020-07-08 | Outpatient (CLI) | payer OTHER | END | disposition home or self-care (01) | LOC: LABWHC1 09:47 | PROVIDERS: ATTEND Obstetrics & Gynecology Reproductive Endocrinology | DX: E28.9 Ovarian dysfunction, unspecified (principal) | CPT/HCPCS: 36415; 82670; 84144 ==

== ENCOUNTER → 2020-07-14 | Outpatient (CLI) | payer OTHER | LOC: LABWHC1 10:49 | PROVIDERS: ATTEND Obstetrics & Gynecology Reproductive Endocrinology | DX: Z32.00 Encounter for pregnancy test, result unknown (principal) | CPT/HCPCS: 36415; 84144; 84702 ==

== ENCOUNTER → 2020-07-18 | Outpatient (CLI) | payer OTHER ==
[2020-07-18 10:57] LABS: HCG,Quantitative Serum <2.4 mIU/mL
[2020-07-18 15:26] LABS: Cardiolipin Ab IgG Interp NEGATIVE (NEGATIVE); Cardiolipin Ab IgM Interp NEGATIVE (NEGATIVE); Cardiolipin IgA Antibody <0.5 U/mL; Cardiolipin IgM Antibody <0.2 U/mL
[2020-07-18 16:37] LABS: Progesterone 0.5 ng/mL
[2020-07-18 19:07] LABS: Luteinizing Hormone 3.1 mIU/mL
[2020-07-18 19:09] LABS: Estradiol 45.4 pg/mL; Follicle Stimulating Hormone 4.6 mIU/mL
[2020-07-21 12:51] LABS: Protein S Antigen 109 % (50 - 140)
[2020-07-21 14:35] LABS: APTT 40 Sec(s) (<43); Dilute Russell Viper Venom 41 Sec(s) (<44)
[2020-07-22 11:16] LABS: Protein C (Activity) >150 % (71-138)
[2020-07-22 11:16] LABS: Anti-Thrombin III Activity 89 % (79-109)
== END | disposition home or self-care (01) ==
LOC: LABWHC1 08:21
PROVIDERS: ATTEND Obstetrics & Gynecology Reproductive Endocrinology
DX: E28.9 Ovarian dysfunction, unspecified (principal); N96 Recurrent pregnancy loss
CPT/HCPCS: 36415; 81240; 82670; 83001; 83002; 83090; 84144; 84443; 84702; 85300; 85303; 85305; 85613; 85730; 86038; 86146; 86147

== ENCOUNTER → 2020-07-28 | Outpatient (CLI) | payer OTHER ==
[2020-07-28 16:46] LABS: Estradiol 173.6 pg/mL; Luteinizing Hormone 7.4 mIU/mL
== END | disposition home or self-care (01) ==
LOC: LABWHC1 09:34
PROVIDERS: ATTEND Obstetrics & Gynecology Reproductive Endocrinology
DX: E28.9 Ovarian dysfunction, unspecified (principal)
CPT/HCPCS: 36415; 82670; 83002; 84144; 88184; 88185

== ENCOUNTER → 2020-08-11 | Outpatient (CLI) | payer OTHER | END | disposition home or self-care (01) | LOC: LABWHC1 07:02 | PROVIDERS: ATTEND Obstetrics & Gynecology Reproductive Endocrinology | DX: E28.9 Ovarian dysfunction, unspecified (principal) | CPT/HCPCS: 36415; 82670; 84144 ==

== ENCOUNTER → 2020-08-15 | Outpatient (CLI) | payer OTHER | END | disposition home or self-care (01) | LOC: LABWHC1 07:45 | PROVIDERS: ATTEND Obstetrics & Gynecology Reproductive Endocrinology | DX: Z32.00 Encounter for pregnancy test, result unknown (principal) | CPT/HCPCS: 36415; 84144; 84702 ==

== ENCOUNTER → 2020-08-18 | Outpatient (CLI) | payer OTHER ==
[2020-08-18 09:15] LABS: HCG,Quantitative Serum <2.4 mIU/mL
[2020-08-18 15:35] LABS: Estradiol 73.5 pg/mL
== END | disposition home or self-care (01) ==
LOC: LABWHC1 07:55
PROVIDERS: ATTEND Obstetrics & Gynecology Reproductive Endocrinology
DX: Z32.01 Encounter for pregnancy test, result positive (principal)
CPT/HCPCS: 36415; 82670; 84144; 84443; 84702

== ENCOUNTER → 2020-08-26 | Outpatient (CLI) | payer OTHER ==
[2020-08-26 16:54] LABS: Estradiol 47.1 pg/mL; Luteinizing Hormone 3.4 mIU/mL
[2020-08-26 16:55] LABS: Follicle Stimulating Hormone 4.4 mIU/mL
[2020-08-26 17:08] LABS: HCG,Quantitative Serum <2.0 mIU/mL
== END | disposition home or self-care (01) ==
LOC: LABWHC1 08:02
PROVIDERS: ATTEND Obstetrics & Gynecology Reproductive Endocrinology
DX: E28.9 Ovarian dysfunction, unspecified (principal)
CPT/HCPCS: 36415; 82670; 83001; 83002; 84144; 84443; 84702

== ENCOUNTER → 2020-09-03 | Outpatient (CLI) | payer OTHER ==
[2020-09-04 11:52] LABS: Estradiol 63.2 pg/mL; Luteinizing Hormone 9.6 mIU/mL
== END | disposition home or self-care (01) ==
LOC: LABWHC1 11:29
PROVIDERS: ATTEND Obstetrics & Gynecology Reproductive Endocrinology
DX: E28.9 Ovarian dysfunction, unspecified (principal)
CPT/HCPCS: 36415; 82670; 83002; 84144

== ENCOUNTER → 2020-09-15 | Outpatient (CLI) | payer OTHER | END | disposition home or self-care (01) | LOC: LABWHC1 10:53 | PROVIDERS: ATTEND Obstetrics & Gynecology Reproductive Endocrinology | DX: Z31.49 Encounter for other procreative investigation and testing (principal) | CPT/HCPCS: 36415; 82670; 84144 ==

== ENCOUNTER → 2020-09-19 | Outpatient (CLI) | payer OTHER | END | disposition home or self-care (01) | LOC: LABWHC1 11:21 | PROVIDERS: ATTEND Obstetrics & Gynecology Reproductive Endocrinology | DX: Z32.00 Encounter for pregnancy test, result unknown (principal) | CPT/HCPCS: 36415; 84144; 84702 ==

== ENCOUNTER → 2020-09-22 | Outpatient (CLI) | payer OTHER ==
[2020-09-22 19:22] LABS: Estradiol 76.6 pg/mL
== END | disposition home or self-care (01) ==
LOC: LABWHC1 11:19
PROVIDERS: ATTEND Obstetrics & Gynecology Reproductive Endocrinology
DX: Z32.01 Encounter for pregnancy test, result positive (principal)
CPT/HCPCS: 36415; 82670; 84144; 84443; 84702

== ENCOUNTER → 2020-09-24 | Outpatient (CLI) | payer OTHER ==
[2020-09-25 00:36] LABS: Estradiol 93.9 pg/mL; HCG,Quantitative Serum 340.7 mIU/mL
== END | disposition home or self-care (01) ==
LOC: LABWHC1 11:25
PROVIDERS: ATTEND Obstetrics & Gynecology Reproductive Endocrinology
DX: Z32.01 Encounter for pregnancy test, result positive (principal)
CPT/HCPCS: 36415; 82670; 84144; 84443; 84702

== ENCOUNTER → 2020-09-26 | Outpatient (CLI) | payer OTHER | END | disposition home or self-care (01) | LOC: LABWHC1 11:13 | PROVIDERS: ATTEND Obstetrics & Gynecology Reproductive Endocrinology | DX: O09.00 Supervision of pregnancy with history of infertility, unspecified trimester (principal); Z3A.00 Weeks of gestation of pregnancy not specified | CPT/HCPCS: 36415; 84702 ==

== ENCOUNTER → 2020-09-30 | Outpatient (CLI) | payer OTHER ==
[2020-09-30 13:29] LABS: HCG,Quantitative Serum 3060.1 mIU/mL
== END | disposition home or self-care (01) ==
LOC: LABWHC1 11:29
PROVIDERS: ATTEND Obstetrics & Gynecology Reproductive Endocrinology
DX: Z32.01 Encounter for pregnancy test, result positive (principal)
CPT/HCPCS: 36415; 82670; 84144; 84702

== ENCOUNTER → 2020-10-03 | Outpatient (CLI) | payer OTHER ==
[2020-10-04 06:25] LABS: Estradiol 202.2 pg/mL
[2020-10-04 07:36] LABS: HCG,Quantitative Serum 6159.5 mIU/mL
== END | disposition home or self-care (01) ==
LOC: LABWHC1 10:05
PROVIDERS: ATTEND Obstetrics & Gynecology Reproductive Endocrinology
DX: Z32.01 Encounter for pregnancy test, result positive (principal)
CPT/HCPCS: 36415; 82670; 84144; 84702

== ENCOUNTER 2021-02-17 18:23 | Outpatient (CLI) | payer OTHER ==
[2021-02-17] MEDS ORDERED: ACETAMINOPHEN IV (For NPO) 1,000 MG in EMPTY BAG 1 BAG IVPB ONE (19:05)
[2021-02-17] MEDS ORDERED: LACTATED RINGERS 1,000 ML IV ONE (19:15)
[2021-02-17 19:39] LABS: Appearance,Urine Cloudy (Clear); Bacteria,Urine Few /hpf; Bilirubin,Urine Negative (Negative); Blood,Urine Negative (Negative); Color,Urine Yellow; Glucose,Urine (UA) Negative (Negative); Ketones,Urine 1+ (Negative); Leukocyte Esterase,Urine Large (Negative); Mucus,Urine Moderate /hpf; Nitrite,Urine Negative (Negative); Protein,Urine 1+ (Negative); RBC,Urine 4 /hpf (0-5); Specific Gravity,Urine 1.032 (1.001-1.035); Squamous Epithelial Cell,Urine 23 /hpf (0-4); WBC,Urine 14 /hpf (0-5)
[2021-02-17 19:46] LABS: African American GFR (CKD) >90 (>60 ml/min/1.73 sqM); Anion Gap 7 mmol/L; Blood Urea Nitrogen 9 mg/dL (7-17); Calcium 10.1 mg/dL (8.4-10.2); Carbon Dioxide 23 mmol/L (22-30); Chloride 103 mmol/L (98-107); Glucose 94 mg/dL (74-99); Non-African American GFR(CKD) >90 (>60 ml/min/1.73 sqM); Potassium 4.2 mmol/L (3.5-5.1); Sodium 133 mmol/L (137-145)
[2021-02-17 19:51] LABS: Basophils % (A) 0 %; Eosinophils # (A) 0.1 k/uL (0-0.7); Eosinophils % (A) 1 %; HCT 37.9 % (34.0-46.0); HGB 12.8 gm/dL (11.4-16.0); Lymphocytes # (A) 2.2 k/uL (1.0-4.8); Lymphocytes % (A) 16 %; MCH 29.6 pg (25.0-35.0); MCHC 33.8 g/dL (31.0-37.0); MCV 87.7 fL (80.0-100.0); Mean Platelet Volume 7.7; Monocytes # (A) 0.4 k/uL (0-1.0); Monocytes % (A) 3 %; Neutrophils # (A) 10.9 k/uL (1.3-7.7); Neutrophils % (A) 80 %; Platelet Count 360 k/uL (150-450); RBC 4.32 m/uL (3.80-5.40); RDW 14.3 % (11.5-15.5); WBC 13.7 k/uL (3.8-10.6)
[2021-02-17 21:51] VITALS: BP 135/81; PULSE 96; RESP 16; TEMP 99
--- NOTE | 2021-02-22 13:53 | P.MSEPDOC ---
Presenting Problems - Arrival Data Date of Arrival on Unit: 02/17/21 Time of Arrival on Unit: 18:23 Mode of Transport: Wheelchair - Complaint OB-Reason for Admission/Chief Complaint: Pain Comment: RLQ abdominal pain Medical History - Information : 3 Para: 0 Term: 0 : 0 Abortions: Spontaneous or Elective: 0 Number of Living Children: 0 - Gestational Age Gestational Age by LANDON (wks/days): 25 Weeks and 4 Days - History Complications: Chronic HTN, GDM Review of Systems - Review of Systems Constitutional: No problems Breast: No problems ENT: No problems Cardiovascular: No problems Respiratory: No problems Gastrointestinal: Pain Genitourinary: No problems Musculoskeletal: No problems Neurological: No problems Skin: No problems Comment: RLQ pain Vital Signs - Temperature Temperature: 99.0 F Temperature Source: Oral - Pulse Pulse Oximetery Pulse Rate: 96 Pulse Assessment Method: Pulse Oximetry - Respirations Respiratory Rate: 16 Oxygen Delivery Method: Room Air O2 Sat by Pulse Oximetry: 99 - Blood Pressure Right Arm Blood Pressure: 135/81 Blood Pressure Mean: 99 Blood Pressure Source: Automatic Cuff Medical Screen Scoring - Assessment - Baby A Baseline FHR: 150 Heart Rate - NICHD Category: Category I (Normal) Physician Notification - Physician Notified Physician Notified Date: 02/17/21 Physician Notified Time: 19:04 Physician: Jane Rothman New Order Received: Yes - Notification Comment Comment: 1903 -Dr. Rothman given report on pt. Pt c/o. Cat 1 fhts. BP of 131/85. Pt reports [facility] in [place] and [facility]. Pt reports IVF conception, MTHFR, GDM- insulin, HTN. Pt reports 409 lb. Orders received to collect UA, CBC, BMP. To administer 1000 cc bolus of LR, and ofirmev 1000mg IVPB. 2039 -Dr. Rothman called, report given on maternal status, 99.0 oral temp, pain down to 4/10 after ofirmev and pt feeling much better, WBC 13.7, UA (1+protein, 1+ketones, no blood, large leukocytes, 14WBC, 23 squamous cells, and few bacteria). Per Dr. Rothman pt possibly has the beginnings of a UTI and may be experiencing round ligament pain. Orders to give 2g Kefzol IVPB, finish 2nd bag of LR and discharge home. Pt should call her OB or [facility] [place] for antibiotic prescription. Maternal Triage Index - Maternal Triage Index Presenting for scheduled procedure w/no complaint: No - Stat/Priority 1 Stat Priority 1: No - Urgent/Priority 2 Urgent Priority 2: Yes Provider Notified: Jane Rothman Provider Notified Time: 19:04 Criteria Met for Priority 2: 25 4/7wks, RLQ pain 10/10 started at midnight. Pt denies abdominal cramping/contractions Disposition - Disposition OB Disposition: Discharge to home Discharge Date: 02/17/21 Discharge Time: 21:38 I agree with the RN Medical Screening Exam: Yes Case reviewed; plan agreed upon as documented in EMR&OBIX.: Yes Comments: Patient was not seen or examined by myself Diagnosis: RELATED CONDITIONS, UNSPECIFIED, SECOND TRIMESTER
== END 2021-02-17 21:38 | disposition home or self-care (01) ==
LOC: FBPOP 18:23
PROVIDERS: ATTEND Obstetrics & Gynecology Obstetrics
DX: O26.892 Other specified pregnancy related conditions, second trimester (principal); R10.31 Right lower quadrant pain; O10.912 Unspecified pre-existing hypertension complicating pregnancy, second trimester; O24.419 Gestational diabetes mellitus in pregnancy, unspecified control; Z3A.25 25 weeks gestation of pregnancy; Z88.1 Allergy status to other antibiotic agents
CPT/HCPCS: 96361; 96365; 80048; 85025; 81001; G0463; J0690; J0131; 99214

== ENCOUNTER 2023-01-28 14:17 | Emergency (ER) | payer OTHER ==
--- NOTE | 2023-01-28 14:37 | ED ---
Abdominal Pain HPI - General Source: patient, RN notes reviewed Mode of arrival: ambulatory Limitations: no limitations - History of Present Illness MD Complaint: abdominal pain <Esther Rivas - Last Filed: 01/28/23 14:36> <Georgiana Sebastian - Last Filed: 01/28/23 18:18> - General Chief Complaint: Abdominal Pain Stated Complaint: 5 weeks preg-abd pain Time Seen by Provider: 01/28/23 14:34 - History of Present Illness Initial Comments: This is a 27 year old female who presents to the emergency department for abdominal pain in . States that she is 5-6 weeks . Today, she started to develop severe lower abdominal pain with radiation into the back. Denies any bleeding. She has had miscarriages before and states that this feels similar. She had an US last week, and an IUP was not visualized. (Esther Rivas) Quick note reviewed: This is a pleasant 27-year-old -[place] female who is A3 who presents to the emergency department with a chief complaint of low pelvic pain. Patient reports she is approximately 5 weeks and 5 days . Last menstrual. LMP 12/25/2022. Patient reports sharp lower abdominal pain worsening today. Denies injury or trauma. Reports slight bright red bleeding. Denies dizziness, lightheadedness, shortness breath, fatigue. 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 Patient recently had an ultrasound 2 days ago which did not reveal IUP. (Georgiana Sebastian) - Related Data Home Medications Medication Instructions Recorded Confirmed Enoxaparin [Lovenox] 40 mg SQ Q12H 02/17/21 02/17/21 Insulin NPH Human Isophane 94 units SQ 02/17/21 [humuLIN N] Previous Rx's Medication Instructions Recorded Cephalexin [Keflex] 500 mg PO BID #14 cap 01/28/23 Allergies Allergy/AdvReac Type Severity Reaction Status Date / Time amoxicillin Allergy Rash/Hives Verified 01/28/23 14:38 Review of Systems ROS Other: All systems not noted in ROS Statement are negative. <Esther Rivas - Last Filed: 01/28/23 14:36> ROS Other: All systems not noted in ROS Statement are negative. <Georgiana Sebastian - Last Filed: 01/28/23 18:18> ROS Statement: Those systems with pertinent positive or pertinent negative responses have been documented in the HPI. Past Medical History Past Medical History: No Reported History, Hypertension History of Any Multi-Drug Resistant Organisms: None Reported Past Surgical History: No Surgical Hx Reported Smoking Status: Never smoker <Esther Rivas - Last Filed: 01/28/23 14:36> General Exam <Esther Rivas - Last Filed: 01/28/23 14:36> <Georgiana Sebastian - Last Filed: 01/28/23 18:18> - General Exam Comments Initial Comments: Visual Physical Exam Vital signs reviewed General: Well-appearing, nontoxic, no acute distress. Head: Normocephalic, atraumatic Eyes: PERRLA, EOMI ENT: Airway patent Chest: Nonlabored breathing Skin: No visual rash, normal skin tone Neuro: Alert and oriented 3 Musculoskeletal: No gross abnormalities I performed the QuickNote portion of this chart. Signed Esther Rivas PA-C. (Esther Rivas) General: Alert, in no acute distress Head: atraumatic normocephalic. Eyes PERRL, EOMI intact, mucous membranes moist Respiratory: Lungs clear to auscultation bilaterally Cardiovascular: Heart rate regular rate and rhythm Abdominal: Soft without guarding or rebound Extremities: Normal inspection with full range of motion and normal capillary refill Neuroogic: alert and oriented 3, CN II-XII intact, able to ambulate with steady gait Skin: warm dry and intact with normal color Patient refuses exam (Georgiana Sebastian) Course Vital Signs 01/28/23 01/28/23 01/28/23 14:34 17:05 17:47 Temperature 98.4 F 98.1 F 98 F Pulse Rate 76 74 77 Respiratory 18 18 18 Rate Blood Pressure 147/98 144/89 140/81 O2 Sat by Pulse 99 98 98 Oximetry Medical Decision Making - Lab Data Result diagrams: 01/28/23 14:55 01/28/23 15:39 <Georgiana Sebastian - Last Filed: 01/28/23 18:18> - Medical Decision Making Was pt. sent in by a medical professional or institution (, PA, SOLAR DESIGNER, urgent care, hospital, or correction...) When possible be specific @ -[No] Did you speak to anyone other than the patient for history (EMS, parent, family, police, friend...)? What history was obtained from this source @ -[No] Did you review nursing and triage notes (agree or disagree)? Why? @ -[I reviewed and agree with nursing and triage notes] Were old charts reviewed (outside hosp., previous admission, EMS record, old EKG, old radiological studies, urgent care reports/EKG's, correction records)? Report findings @ -[No old charts were reviewed] Differential Diagnosis (chest pain, altered mental status, abdominal pain women, abdominal pain men, vaginal bleeding, weakness, fever, dyspnea, syncope, headache, dizziness, GI bleed, back pain, seizure, CVA, palpatations, mental health, musculoskeletal)? @ -[not applicable] EKG interpreted by me (3pts min.). @ -[As above] X-rays interpreted by me (1pt min.). @ -[None done] CT interpreted by me (1pt min.). @ -[None done] U/S interpreted by me (1pt. min.). @ Pelvic ultrasound does not reveal any IUP time What testing was considered but not performed or refused? (CT, X-rays, U/S, labs)? Why? @ -[None] What meds were considered but not given or refused? Why? @ -[None] Did you discuss the management of the patient with other professionals (professionals i.e. , PA, SOLAR DESIGNER, lab, RT, psych nurse, director social, crabber, teacher, navy airspace officer, immigration case worker)? Give summary @ -[No] Was smoking cessation discussed for >3mins.? @ -[No] Was critical care preformed (if so, how long)? @ -[No] Were there social determinants of health that impacted care today? How? (Homelessness, low income, unemployed, alcoholism, drug addiction, transportation, low edu. Level, literacy, decrease access to med. care, senior living, rehab)? @ -[No] Was there de-escalation of care discussed even if they declined (Discuss DNR or withdrawal of care, Hospice)? DNR status @ -[No] What co-morbidities impacted this encounter? (DM, HTN, Smoking, COPD, CAD, Cancer, CVA, ARF, Chemo, Hep., AIDS, mental health diagnosis, sleep apnea, morbid obesity)? @ -[None] Was patient admitted / discharged? Hospital course, mention meds given and route, prescriptions, significant lab abnormalities, going to OR and other pertinent info. @ -Discharge. This is a pleasant 27-year-old -[place] female who presents the emergency department with vaginal bleeding in . Patient had a thorough history and physical exam performed. Heart rate regular rate and rhythm, lungs clear. Abdomen soft nontender. Patient refusing pelvic exam. Patient had laboratory. WBC 9.6, hemoglobin 14.0 hCG less than 2.4. Pelvic ultrasound does not reveal any IUP at this time. I discussed the results in detail with the patient verbalized understanding all questions were addressed. Patient agreeable with the plan for discharge home. Recommend close follow-up with BIOLOGICAL TECHNICAL OFFICER. Return precautions were discussed at length. Include a worsening vaginal bleeding, dizziness or lightheadedness develop. Case discussed with Dr. Damon, [facility] who agrees with plan of care Undiagnosed new problem with uncertain prognosis? @ -[No] Drug Therapy requiring intensive monitoring for toxicity (Heparin, Nitro, Insulin, Cardizem)? @ -[No] Were any procedures done? @ -[No] Diagnosis/symptom? @ -Vaginal Bleeding vs. Threatened Miscarriage - Urinary Tract Infection Acute, or Chronic, or Acute on Chronic? @ -Acute Uncomplicated (without systemic symptoms) or Complicated (systemic symptoms)? @ -Uncomplicated Side effects of treatment? @ -[No] Exacerbation, Progression, or Severe Exacerbation? @ -[No] Poses a threat to life or bodily function? How? (Chest pain, [place], [place], pneumonia, PE, COPD, DKA, ARF, appy, cholecystitis, CVA, Diverticulitis, Homicidal, Suicidal, threat to staff... and all critical care pts) @ -Low likelihood ] (Georgiana Sebastian) - Lab Data Lab Results 01/28/23 01/28/23 01/28/23 Range/Units 14:55 14:55 15:39 WBC 9.6 (3.8-10.6) k/uL RBC 4.97 (3.80-5.40) m/uL Hgb 14.0 (11.4-16.0) gm/dL Hct 42.6 (34.0-46.0) % MCV 85.7 (80.0-100.0) fL MCH 28.2 (25.0-35.0) pg MCHC 32.9 (31.0-37.0) g/dL RDW 14.9 (11.5-15.5) % Plt Count 355 (150-450) k/uL MPV 7.8 Neutrophils % 64 % Lymphocytes % 29 % Monocytes % 4 % Eosinophils % 2 % Basophils % 0 % Neutrophils # 6.2 (1.3-7.7) k/uL Lymphocytes # 2.8 (1.0-4.8) k/uL Monocytes # 0.4 (0-1.0) k/uL Eosinophils # 0.2 (0-0.7) k/uL Basophils # 0.0 (0-0.2) k/uL Sodium 140 (137-145) mmol/L Potassium 2.9 L (3.5-5.1) mmol/L Chloride 119 H (98-107) mmol/L Carbon Dioxide 16 L (22-30) mmol/L Anion Gap 5 mmol/L BUN 9 (7-17) mg/dL Creatinine 0.64 (0.52-1.04) mg/dL Est GFR (CKD-EPI)AfAm >90 (>60 ml/min/1.73 sqM) Est GFR (CKD-EPI)NonAf >90 (>60 ml/min/1.73 sqM) Glucose 62 L (74-99) mg/dL Calcium 5.9 L* (8.4-10.2) mg/dL Total Bilirubin 0.2 (0.2-1.3) mg/dL AST 15 (14-36) U/L ALT 11 (4-34) U/L Alkaline Phosphatase 40 (38-126) U/L Total Protein 4.2 L (6.3-8.2) g/dL Albumin 2.0 L (3.5-5.0) g/dL HCG, Quant <2.4 mIU/mL Urine Color Light Yellow Urine Appearance Cloudy H (Clear) Urine pH 6.5 (5.0-8.0) Ur Specific [place] 1.024 (1.001-1.035) Urine Protein Trace H (Negative) Urine Glucose (UA) Negative (Negative) Urine Ketones Negative (Negative) Urine Blood Large H (Negative) Urine Nitrite Negative (Negative) Urine Bilirubin Negative (Negative) Urine Urobilinogen <2.0 (<2.0) mg/dL Ur Leukocyte Esterase Large H (Negative) Urine RBC 147 H (0-5) /hpf Urine WBC 51 H (0-5) /hpf Ur Squamous Epith Cells 10 H (0-4) /hpf Urine Bacteria Rare H (None) /hpf Urine Mucus Occasional H (None) /hpf Disposition <Esther Rivas - Last Filed: 01/28/23 14:36> Is patient prescribed a controlled substance at d/c from ED?: No Time of Disposition: 17:02 <Georgiana Sebastian - Last Filed: 01/28/23 18:18> Clinical Impression: Vaginal bleeding, Threatened miscarriage Disposition: HOME SELF-CARE Condition: Stable Instructions (If sedation given, give patient instructions): Threatened Miscarriage (ED) Additional Instructions: Please monitor symptoms closely Please return to the nearest emergency department if worsening vaginal bleeding, dizziness, lightheaded, shortness of breath develop Prescriptions: Cephalexin [Keflex] 500 mg PO BID #14 cap Referrals: Candi Andersen MD [Primary Care Provider] - 1-2 days Cielo Guevara MD [STAFF PHYSICIAN] - 1-2 days
[2023-01-28 14:47] VITALS: RESP 18
[2023-01-28] MEDS ORDERED: SODIUM CHLORIDE 0.9% 1,000 ML IV ONE (15:06)
[2023-01-28 15:22] LABS: Basophils % (A) 0 %; Eosinophils # (A) 0.2 k/uL (0-0.7); Eosinophils % (A) 2 %; HCT 42.6 % (34.0-46.0); Lymphocytes # (A) 2.8 k/uL (1.0-4.8); Lymphocytes % (A) 29 %; MCH 28.2 pg (25.0-35.0); MCHC 32.9 g/dL (31.0-37.0); MCV 85.7 fL (80.0-100.0); Mean Platelet Volume 7.8; Monocytes # (A) 0.4 k/uL (0-1.0); Monocytes % (A) 4 %; Neutrophils # (A) 6.2 k/uL (1.3-7.7); Neutrophils % (A) 64 %; Platelet Count 355 k/uL (150-450); RBC 4.97 m/uL (3.80-5.40); RDW 14.9 % (11.5-15.5); WBC 9.6 k/uL (3.8-10.6)
[2023-01-28 15:24] LABS: Appearance,Urine Cloudy (Clear); Bacteria,Urine Rare /hpf; Bilirubin,Urine Negative (Negative); Blood,Urine Large (Negative); Color,Urine Light Yellow; Glucose,Urine (UA) Negative (Negative); Ketones,Urine Negative (Negative); Leukocyte Esterase,Urine Large (Negative); Mucus,Urine Occasional /hpf; Nitrite,Urine Negative (Negative); PH, Urine 6.5 (5.0-8.0); Protein,Urine Trace (Negative); RBC,Urine 147 /hpf (0-5); Specific Gravity,Urine 1.024 (1.001-1.035); Squamous Epithelial Cell,Urine 10 /hpf (0-4); Urobilinogen,Urine <2.0 mg/dL (<2.0); WBC,Urine 51 /hpf (0-5)
--- NOTE | 2023-01-28 16:16 | US ---
EXAMINATION TYPE: Transabdominal DATE OF EXAM: 01/28/2023 3:40 PM COMPARISON: NONE CLINICAL INDICATION: Female, 27 years old with history of pelvic pain in ; positive pregnanc y tests, scan in office 3 days ago, no IUP seen on exam EXAM PERFORMED: Transabdominal (TA) EXAM MEASUREMENTS: GESTATIONAL AGE / DATING Physician Established: Not yet established Dates by LMP: ( 5 weeks/1 days) EDC: 09/25/23 Dates by First Scan: outside imaging Dates by Current Scan for: No IUP seen at this time MATERNAL ANATOMY Uterus: 9.6x5.2x5.1 Right Ovary: 3.4x2.2x2.7 Left Ovary: 3.4x2.9x1.7 Post CDS / Adnexa: wnl Presence of free fluid: n/a Presence of corpus luteal cyst: n/a Presence of subchorionic bleed: n/a GESTATION / SURVEY CRL: no IUP MSD: no IUP Yolk Sac (normal less than 6mm): no IUP Heart Rate: no IUP Rhythm: no IUP IUP: No IUP seen at this time Nuchal Translucency 10-14wks (normal less than 3mm): no IUP Date of LMP: 12/19/2022 Beta HcG (if available): Not available at this time IMPRESSION: 1. No intrauterine seen. There is diffuse heterogeneity of the uterine myometrium as well a s endometrial thickening. Correlate with serial beta hCG and/or ultrasound. Consider missed spontaneo us , normal early IUP and less likely ectopic .
[2023-01-28 16:28] LABS: ALT 11 U/L (4-34); AST 15 U/L (14-36); African American GFR (CKD) >90 (>60 ml/min/1.73 sqM); Alkaline Phosphatase 40 U/L (38-126); Anion Gap 5 mmol/L; Blood Urea Nitrogen 9 mg/dL (7-17); Carbon Dioxide 16 mmol/L (22-30); Chloride 119 mmol/L (98-107); Glucose 62 mg/dL (74-99); Non-African American GFR(CKD) >90 (>60 ml/min/1.73 sqM); Potassium 2.9 mmol/L (3.5-5.1); Sodium 140 mmol/L (137-145); Total Bilirubin 0.2 mg/dL (0.2-1.3); Total Protein 4.2 g/dL (6.3-8.2)
[2023-01-28 16:34] LABS: Calcium 5.9 mg/dL (8.4-10.2)
[2023-01-28 16:43] LABS: HCG,Quantitative Serum <2.4 mIU/mL
[2023-01-28 17:53] VITALS: BP 140/81; PULSE 77; TEMP 98
== END 2023-01-28 17:49 | disposition home or self-care (01) ==
LOC: EC 14:17
DX: O20.0 Threatened abortion (principal); O26.891 Other specified pregnancy related conditions, first trimester; R93.89 Abnormal findings on diagnostic imaging of other specified body structures; O16.1 Unspecified maternal hypertension, first trimester; Z88.0 Allergy status to penicillin; Z3A.01 Less than 8 weeks gestation of pregnancy
CPT/HCPCS: 36415; 76801; 80053; 81001; 84702; 85025; 86900; 86901; 87086; 96360; 99284